=== PATIENT | female | born 1930 | race Caucasian/White ===

== ENCOUNTER 2017-01-23 14:30 | Outpatient (RCR) | payer MEDICARE ==
--- OUTSIDE RECORDS SUMMARY | 2016-11-06 13:00 | XMS REPORT | Continuity of Care Document ---
Author Author [facility] Organization [facility] Address Unknown Phone Unavailable Care Team Providers Care Assistant Therapy Aide Name Role Phone DALIA DELGADO MD PCP Insurance Providers Payer Name Policy Number Subscriber Name Relationship [employer] [id number] Peg Lozoya 18 Self / Same As Patient [employer] [place] [employer] [id number] Peg Lozoya 18 Self / Same As Patient [facility] [id number] Peg Lozoya Self / Same As Patient Advance Directives Directive Response Recorded Date/Time Advance Directives No 07/17/16 11:39pm Health Care Power of Gas Leak Inspector Helper No 07/17/16 11:39pm Organ Donor No 07/17/16 11:39pm Resuscitation Status Full Code 07/17/16 11:39pm Problems Active Problems Medical Problem Onset Date Status Unstable angina Unknown Acute Medications Current Home Medications Medication Dose Units Route Directions Days/Qty Instructions Start Date Memantine 10 Mg 10 Mg Oral Twice A Day 12/30/14 Rivastigmine Tartrate 1 Each 1 Patch Transderm Daily@1200 12/30/14 Ezetimibe 10 Mg 10 Mg Oral Daily@1800 12/30/14 Acetaminophen 500 Mg 500 Mg Oral 5 Times Daily as needed for Pain Aspirin 81 Mg 81 Mg Oral Daily@1800 12/30/14 Levothyroxine Sodium 50 Mcg 50 Mcg Oral Daily 09/27/16 Prednisone 5 Mg 5 Mg Oral Daily 07/18/16 Meloxicam 15 Mg 15 Mg Oral Daily 07/18/16 Paroxetine Hcl 10 Mg 10 Mg Oral Daily 07/18/16 Fluticasone Propionate 9.9 Ml 1 [place] Nasal Twice A Day 07/18/16 Cyanocobalamin (Vitamin B-12) 1,000 Mcg/1 Ml 1,000 Mcg Oral Daily@1200 07/18/16 Pantoprazole Sodium 40 Mg 40 Mg Oral Daily@179907/18/16 Cranberry 500 Mg 500 Mg Oral Daily@179907/18/16 Alprazolam 0.25 Mg 0.25 Mg Oral Daily@179907/18/16 Nitrofurantoin Macrocrystal 100 Mg 100 Mg Oral Daily@179907/18/16 Metoprolol Tartrate 25 Mg 25 Mg Oral Twice A Day 60 07/18/16 Amlodipine Besylate 10 Mg 10 Mg Oral Daily 07/18/16 Lisinopril 20 Mg 10 Mg Oral Daily 07/18/16 Past Home Medications Medication Directions Ordered Status Levothyroxine Sodium 75 Mcg Tablet, 75 Mcg Oral Daily 12/30/14 Discontinued Carvedilol (Coreg) 6.25 Mg Tablet, 12.5 Mg Oral Twice A Day 12/30/14 Discontinued Citalopram Hydrobromide 20 Mg Tablet, 20 Mg Oral Daily 12/30/14 Discontinued Celecoxib 400 Mg Capsule, 400 Mg Oral Daily 12/30/14 Discontinued Omeprazole 20 Mg Tablet.dr, 40 Mg Oral Bedtime 12/30/14 Discontinued Prednisone 10 Mg Tablet, 10 Mg Oral Daily@1200 12/30/14 Discontinued Solifenacin 5 Mg Tablet, 5 Mg Oral Bedtime 12/30/14 Discontinued Multivitamin 1 Each Tablet, 1 Each Oral Daily 12/30/14 Discontinued Om-3/Dha/Epa/Fish Oil/Vit D3 1 Each Capsule, 1 Each Oral Bedtime 12/30/14 Discontinued Vit A,C & E/Lutein/Minerals 1 Each Tablet, 1 Each Oral Bedtime 12/30/14 Discontinued Phenazopyridine Hcl 200 Mg Tablet, 1 Each Oral Three Times A Day And Prn Discontinued [Bactrim Plain] , 1 Tab Oral Twice A Day 01/06/15 Discontinued Carvedilol 12.5 Mg Tablet, 12.5 Mg Oral Twice A Day 07/18/16 Discontinued Nitrofurantoin Macrocrystal 50 Mg Capsule, 50 Mg Oral Daily@1800 07/18/16 Discontinued Metoprolol Succinate 50 Mg Tab.er.24h, 50 Mg Oral Daily 07/18/16 Discontinued Social History Social History Problem Response Recorded Date/Time Alcohol Use Denies Use 02/24/2016 11:58am Recreational Drug Use No 02/24/2016 11:58am Recent Foreign Travel No 07/17/2016 11:46pm Recent Infectious Disease Exposure No 07/17/2016 11:46pm Smoking Status Unknown if Ever Smoked 07/17/2016 11:43pm Recent Hopitalizations No 07/17/2016 11:40pm Query Response Start Date Stop Date Smoking Status Unknown if Ever Smoked Hospital Discharge Instructions No hospital discharge instructions. Plan of Care Discharge Date 07/18/16 11:00am Instructions/Education Provided 2 Gram Sodium Diet (DC) Prescriptions See Medication Section Functional Status Query Response Date Recorded Patient Orientation Person Place July 18, 2016 11:12am Comprehension Ability Understands Concepts July 18, 2016 8:00am Allergies, Adverse Reactions, Alerts Allergen Type Severity Reaction Status Last Updated Iodine and Iodide Containing Produc Allergy Mild RASH Active 01/06/15 Penicillins ([id number]) Allergy Unknown RASH Active 12/30/14 Immunizations Name Given Type FLU TRIvalent 5 years - Adult 07/18/16 Administered Vital Signs Acute Vital Signs Vital Response Date/Time Temperature (Fahrenheit) 98.8 degrees F (97.6 - 99.5) 07/18/2016 9:44am Temperature (Calculated Celsius) 37.46694 degrees C (36.4 - 37.5) 07/18/2016 8:00am Temperature Source Tympanic 07/18/2016 9:44am Pulse Rate (adult) 85 bpm (60 - 90) 07/18/2016 9:44am Respiratory Rate 16 bpm (12 - 24) 07/18/2016 9:44am O2 Sat by Pulse Oximetry 99 % (88 - 100) 07/18/2016 10:04am Blood Pressure 155/60 mm Hg 07/18/2016 9:44am Blood Pressure Mean 91 mm Hg 07/18/2016 8:00am Pain Numeric Pain Scale 0-No Pain 07/18/2016 9:44am Height (Feet) 5 feet 07/17/2016 11:46pm Height (Inches) 4.00 inches 07/17/2016 11:46pm Height (Calculated Centimeters) 162.125029 cm 07/17/2016 11:46pm Weight (Pounds) 188 pounds 07/18/2016 6:00am Weight (Ounces) 3.0 oz 07/18/2016 6:00am Weight (Calculated Grams) 10683.415 gm 07/18/2016 6:00am Weight (Calculated Kilograms) 85.690503 kilograms 07/18/2016 6:00am Calculated BMI 32.3 07/17/2016 11:46pm Capillary Refill Capillary Refill Less Than 3 Seconds 07/18/2016 8:00am Results Pending Laboratory Results Test Name Collection Date/Time Procedures Procedure Status Date Provider(s) Tracing only of electrocardiogram Completed 07/17/16 CURTIS GREER MD Encounters Encounter Location Arrival/Admit Date Discharge/Depart Date Attending Provider Departed [facility] 07/17/16 5:47pm 11:00am BRENDEN CARTER MD Registered Clinic [facility] 06/21/16 11:48am ARIK CEBALLOS PA-C Recent Diagnosis Unstable angina
[~2017-01-23 14:30] MED LIST: ACET-1697 PO; ALPR0.254 PO; AMLO10TA2 PO; ASPI-587 PO; CARV12.53 PO; CARV6.252 PO; CELE400C PO; CITA20TA12 PO; CRAN500C3 PO; CYAN100081 PO; EZET10TA23 PO; FLUT9.9S NS; LEVO50TA6 PO; LEVO75TA57 PO; LISI-552 PO; MELO15TA14 PO; MEMA10TA PO; METO-272 PO; METO-333 PO; MULT-974 PO; NITR100C PO; NITR50CA4 PO; OM-31CAP9 PO; OMEP20TA2 PO; PANT40TA3 PO; PARO10TA3 PO; PHEN200T27 PO; PRED10TA PO; PRED5TAB PO; RIVA1PAT4 TD; SOLI5TAB4 PO; SULFAMETHOXAZOLE PO; TRIMETHOPRIM PO; VIT1TABL26 PO
== END 2017-02-04 | disposition home or self-care (01) ==
LOC: PULM 14:30
PROVIDERS: ATTEND Internal Medicine Critical Care Medicine
DX: R06.02 Shortness of breath (principal); F03.90 Unspecified dementia, unspecified severity, without behavioral disturbance, psychotic disturbance, mood disturbance, and anxiety; R53.83 Other fatigue; F41.9 Anxiety disorder, unspecified
CPT/HCPCS: 99211

== ENCOUNTER 2017-03-27 14:30 | Outpatient (RCR) | payer MEDICARE | END 2017-05-09 | disposition home or self-care (01) | LOC: PULM 14:30 | PROVIDERS: ATTEND Internal Medicine Critical Care Medicine | DX: R06.02 Shortness of breath (principal); F03.90 Unspecified dementia, unspecified severity, without behavioral disturbance, psychotic disturbance, mood disturbance, and anxiety; R53.83 Other fatigue; F41.9 Anxiety disorder, unspecified ==

== ENCOUNTER 2017-12-06 12:26 | Inpatient (IN) | payer MEDICARE ==
[2017-12-06] VITALS (9 sets, daily range): BP systolic 135–151; BP diastolic 63–78
[~2017-12-06] VITALS: Ht 162.6 cm; Wt 86.8 kg
[~2017-12-06 12:26] MED LIST changes: -METO-272 PO; +METO-370 PO
[2017-12-06] MEDS ORDERED: HEParin DRIP 25000 UNIT/500ML 500 ML IV SCH (14:24)
[2017-12-06] MEDS ORDERED: HEParin 1000 UNIT/ML (10ML VIAL) FOR BOLUS IV SCH (14:30)
[2017-12-06 15:07] LABS: BILIRUBIN,URINE NEGATIVE (NEGATIVE); CLARITY,URINE SLIGHTLY CLOUDY; COLOR,URINE YELLOW; GLUCOSE, URINE (UA) NEGATIVE (NEGATIVE); KETONES,URINE NEGATIVE (NEGATIVE); LEUKOCYTE ESTERASE ,URINE 3+ (NEGATIVE); NITRITE,URINE NEGATIVE (NEGATIVE); PH,URINE 8 (5-9); PROTEIN,URINE NEGATIVE (NEGATIVE); UROBILINOGEN,URINE NORMAL (NORMAL)
[2017-12-06 15:21] LABS: BACTERIA,URINE FEW /HPF
[2017-12-06 15:22] LABS: AMORPHOUS SEDIMENT,UR MOD AMOR PHOSPHATE /LPF
[2017-12-06] MEDS ORDERED: SIME125C PO (15:33)
[2017-12-06] MEDS ORDERED: MEMA1CAP3 PO (15:33)
[2017-12-06] MEDS ORDERED: MIRA25TA PO (15:33)
[2017-12-06] MEDS ORDERED: AZEL23SP NS (15:33)
[2017-12-06] MEDS ORDERED: ASPI-983 PO (15:33)
[2017-12-06] MEDS ORDERED: LISI-552 PO (15:33)
[2017-12-06] MEDS ORDERED: CLON1PAT33 TD (15:33)
[2017-12-06] MEDS ORDERED: LEVO88TA54 PO (15:33)
[2017-12-06] MEDS ORDERED: RISP0.253 PO (15:33)
[2017-12-06] MEDS ORDERED: ACET-168 PO (15:33)
[2017-12-06] MEDS ORDERED: IBUP-30 PO (15:33)
[2017-12-06] MEDS ORDERED: EZET10TA27 PO (15:33)
[2017-12-06] MEDS ORDERED: NITR-68 PO (15:33)
[2017-12-06] MEDS ORDERED: CHOL20003 PO (15:36)
[2017-12-06 15:56] LABS: BASOPHILS % (AUTO) 0 % (0-10); EOSINOPHILS % (AUTO) 0 % (0-10); HEMATOCRIT 43 % (35-52); LYMPHOCYTES # (AUTO) 1.3 X 10^3 (1.0-4.0); LYMPHOCYTES % (AUTO) 9 % (12-44); MEAN CORPUSCULAR HEMOGLOBIN 32 PG (25-34); MEAN CORPUSCULAR HGB CONC 32 G/DL (32-36); MEAN CORPUSCULAR VOLUME 99 FL (80-99); MEAN PLATELET VOLUME 11.5 FL (7.4-10.4); MONOCYTES # (AUTO) 0.7 X 10^3 (0.0-1.0); MONOCYTES % (AUTO) 5 % (0-12); NEUTROPHILS # (AUTO) 12.3 X 10^3 (1.8-7.8); NEUTROPHILS % (AUTO) 86 % (42-75); PLATELET COUNT 195 10^3/uL (130-400); RED BLOOD COUNT 4.35 10^6/uL (4.35-5.85); RED CELL DISTRIBUTION WIDTH 12.3 % (10.0-14.5); WHITE BLOOD COUNT 14.4 10^3/uL (4.3-11.0)
[2017-12-06 16:12] LABS: INR 1.1 (0.8-1.4); PROTHROMBIN TIME PATIENT 14.1 SEC (12.2-14.7)
[2017-12-06 16:15] LABS: BUN/CREATININE RATIO 13; CALCIUM 9.8 MG/DL (8.5-10.1); CARBON DIOXIDE 18 MMOL/L (21-32); CHLORIDE 110 MMOL/L (98-107); CREATININE SERUM 0.82 MG/DL (0.60-1.30); GFR ESTIMATED > 60; GLUCOSE 123 MG/DL (70-105); SODIUM 141 MMOL/L (135-145)
[2017-12-06 16:17] LABS: BAND NEUTROPHILS 1 %; BASOPHILS % (MANUAL) 0 %; EOSINOPHILS % (MANUAL) 0 %; LYMPHOCYTES % (MANUAL) 11 %; MONOCYTES % (MANUAL) 2 %; NEUTROPHILS % (MANUAL) 86 %; PLATELET CLUMPS OCCASIONAL; RBC MORPH NORMAL
[2017-12-06] MEDS ORDERED: INFLUENZA TRIvalent 2017-2018 0.5 ML/45 MCG SYR IM ONE (16:45)
[2017-12-06] MEDS ORDERED: ACETAMINOPHEN 500 MG TAB (TYLENOL) PO PRN (16:45)
[2017-12-06] MEDS ORDERED: IBUPROFEN TABLET 200 MG TAB PO PRN (17:15)
[2017-12-06] MEDS ORDERED: VANCOMYCIN INJECTION 1,000 MG in NS (IVPB) 250 ML IV SCH (17:15)
--- NOTE | 2017-12-06 17:20 | Consultation-Cardiology ---
HPI-Cardiology Cardiology Consultation Date of Consultation 12/06/17 Date of Admission Time Seen by Provider: 17:13 Indication: Change in mental status HPI 87 years old lady with history of coronary artery disease, small vessel disease by cardiac catheterization done in 2016. Has been having recurrent UTI, multiple hospital visits. Was in the hospital for few days early in November 2017, discharge home on IV antibiotic, continue to deteriorate until 3 days ago , became lethargic and confused more than her baseline. Was admitted to [facility] with UTI again and received antibiotic, patient was getting ready for transfer to [facility] for tomorrow but this morning she became unresponsive, lethargic, had some EKG changes. There was a concern about having heart attack. I was contacted and accepted the patient to be transferred. Upon my evaluation she was more awake, responsive to verbal stimuli but disoriented. Lethargic. Denied any chest pain or shortness of breath. Home Medications & Allergies Allergies: Coded Allergies: Iodine and Iodide Containing Produc (Unverified Allergy, Mild, RASH, ) Penicillins (Unverified Allergy, Unknown, RASH, 12/30/14) Home Medication List Reviewed: Yes OAN-Wuzltk-Ifetig Hx Patient Social History Marital Status: Alcohol Use: Denies Use Recreational Drug Use: No Smoking Status: Never a Smoker Recent Foreign Travel: No Recent Infectious Disease Expo: No Recent Hopitalizations: No Physical Abuse Screen: No Sexual Abuse: No Immunizations Up To Date Date of Pneumonia Vaccine: Jul 22, 2014 Date of Influenza Vaccine: Jul 22, 2014 Past Medical History Thus medical history as discussed below Family Medical History Significant Family History: No Pertinent Family Hx Family Medical Hx Noncontributory to her current condition Constitutional: malaise, weakness EENTM: see HPI, no symptoms reported Respiratory: see HPI, No cough, No dyspnea on exertion, No hemoptysis, No orthopnea, No phlegm, No short of breath, No stridor, No wheezing, No other Cardiovascular: see HPI, No chest pain, No edema, No Hx of Intervention, No palpitations, No syncope, No vascular heart diseas, No other Gastrointestinal: no symptoms reported Genitourinary: see HPI, incontinence Musculoskeletal: muscle stiffness, muscle cramps, muscle weakness Psychiatric/Neurological: Depressed, Other (Infusion) Reviewed Test Results Reviewed Test Results Laboratory Tests Test 12/06/17 14:55 2/15/18 15:20 12/06/17 15:45 Range/Units Urine Color YELLOW Urine Clarity SLIGHTLY CLOUDY Urine pH 8 5-9 Urine Specific [place] 1.015 L 1.016-1.022 Urine Protein NEGATIVE NEGATIVE Urine Glucose (UA) NEGATIVE NEGATIVE Urine Ketones NEGATIVE NEGATIVE Urine Nitrite NEGATIVE NEGATIVE Urine Bilirubin NEGATIVE NEGATIVE Urine Urobilinogen NORMAL NORMAL MG/DL Urine Leukocyte Esterase 3+ H NEGATIVE Urine RBC (Auto) 3+ H NEGATIVE Urine RBC 10-25 H /HPF Urine WBC 10-25 H /HPF Urine Crystals PRESENT H /LPF Urine Amorphous Sediment MOD SUSAN PHOSPHATE H /LPF Urine Bacteria FEW H /HPF Urine Casts NONE /LPF Urine Mucus NEGATIVE /LPF Urine Culture Indicated YES Sodium Level 141 135-145 MMOL/L Potassium Level 4.0 3.6-5.0 MMOL/L Chloride Level 110 H 98-107 MMOL/L Carbon Dioxide Level 18 L 21-32 MMOL/L Anion Gap 13 5-14 MMOL/L Blood Urea Nitrogen 11 7-18 MG/DL Creatinine 0.82 0.60-1.30 MG/DL Estimat Glomerular Filtration Rate > 60 BUN/Creatinine Ratio 13 Glucose Level 123 H 70-105 MG/DL Calcium Level 9.8 8.5-10.1 MG/DL Troponin I < 0.30 <0.30 NG/ML White Blood Count 14.4 H 4.3-11.0 10^3/uL Red Blood Count 4.35 4.35-5.85 10^6/uL Hemoglobin 14.0 11.5-16.0 G/DL Hematocrit 43 35-52 % Mean Corpuscular Volume 99 80-99 FL Mean Corpuscular Hemoglobin 32 25-34 PG Mean Corpuscular Hemoglobin Concent 32 32-36 G/DL Red Cell Distribution Width 12.3 10.0-14.5 % Platelet Count 195 130-400 10^3/uL Mean Platelet Volume 11.5 H 7.4-10.4 FL Neutrophils (%) (Auto) 86 H 42-75 % Lymphocytes (%) (Auto) 9 L 12-44 % Monocytes (%) (Auto) 5 0-12 % Eosinophils (%) (Auto) 0 0-10 % Basophils (%) (Auto) 0 0-10 % Neutrophils # (Auto) 12.3 H 1.8-7.8 X 10^3 Lymphocytes # (Auto) 1.3 1.0-4.0 X 10^3 Monocytes # (Auto) 0.7 0.0-1.0 X 10^3 Eosinophils # (Auto) 0.0 0.0-0.3 10^3/uL Basophils # (Auto) 0.0 0.0-0.1 10^3/uL Neutrophils % (Manual) 86 % Lymphocytes % (Manual) 11 % Monocytes % (Manual) 2 % Eosinophils % (Manual) 0 % Basophils % (Manual) 0 % Band Neutrophils 1 % Clumped Platelets OCCASIONAL Blood Morphology Comment NORMAL Prothrombin Time 14.1 12.2-14.7 SEC INR Comment 1.1 0.8-1.4 Activated Partial Thromboplast Time 165 *H 24-35 SEC Physical Exam Vital Signs Vital Signs - First Documented 12/06/17 12/06/17 15:50 16:00 Temp 98.1 Pulse 85 Resp 16 B/P (MAP) 137/63 (87) Pulse Ox 97 O2 Delivery Nasal Cannula Capillary Refill : General Appearance: WD/WN, Moderate Distress Eyes: Bilateral Eye Normal Inspection, Bilateral Eye PERRL, Bilateral Eye EOMI HEENT: PERRL/EOMI, TMs Normal, Normal ENT Inspection, Pharynx Normal Neck: Full Range of Motion, Normal Inspection, Non Tender, Supple, Carotid Bruit Respiratory: Chest Non Tender, Lungs Clear, Normal Breath Sounds, No Accessory Muscle Use, No Respiratory Distress Cardiovascular: Regular Rate, Rhythm, No Edema, No Gallop, No JVD, Normal Peripheral Pulses, Systolic Murmur Gastrointestinal: Normal Bowel Sounds, No Organomegaly, No Pulsatile Mass, Non Tender, Soft Back: Normal Inspection, No CVA Tenderness, No Vertebral Tenderness Extremity: Normal Capillary Refill, Normal Inspection, Normal Range of Motion, Non Tender, No Calf Tenderness, No Pedal Edema Neurologic/Psychiatric: Alert, Motor Weakness, Other (Disoriented, lethargic) Skin: Normal Color, Warm/Dry Lymphatic: No Adenopathy A/P-Cardiology Admission Diagnosis Change in mental status Recurrent UTI Coronary artery disease Malignant hypertension Assessment/Plan Change in mental status, lethargy, confusion, recurrent UTI. Currently off antibiotic, workup done by primary care team. Generalized weakness and loss of energy, became unresponsive earlier, currently arousable. I removed NG tube. Patient was able to drink. Abnormal EKG, right bundle branch block, nonspecific T wave abnormality. Appeared to be chronic. Cardiac enzymes were negative. Continue to monitor, stop heparin drip. Continue on aspirin for now. Coronary artery disease, mild per cardiac catheterization done on July 17, 2016, continue to monitor at this time. Echocardiogram done in [facility] showing normal left ventricular size with left ventricular hypertrophy ejection fraction 60-65 percent, continue to monitor Malignant hypertension, resistant to multiple medication, her change in mental status could be due to episode of severe hypotension. Hyperlipidemia, monitor lipids. Restart home medication Generalized body ache, unable to tolerate statin. Dementia, progressive, change in mental status. Currently confused Osteoarthritis, maintained on steroids. Clinical Quality Measures DVT/VTE Risk/Contraindication: Risk Factor Score Per Nursin RFS Level Per Nursing on Admit: 3=High BRENDEN CARTER MD Dec 06, 2017 17:20
[2017-12-06] MEDS ORDERED: NITROFURANTOIN 50 MG (MACRODANTIN) CAP PO SCH (18:00)
[2017-12-06] MEDS ORDERED: NON-FORMULARY MEDICATION 1 EA EA (Mirabegron (Myrbetriq) 25 MG) PO SCH (18:00)
[2017-12-06] MEDS ORDERED: NITROFURANTOIN MACROCRYSTAL 100 MG PO SCH (18:00)
[2017-12-06] MEDS: eZETimibe 10 MG (ZETIA) TABLET PO SCH (18:07)
[2017-12-06] MEDS: ASPIRIN E.C. 81 MG (ECOTRIN) TAB PO SCH (18:07)
[2017-12-06] MEDS: ALPRAZolam 0.25 MG (XANAX) TAB PO SCH (18:08)
[2017-12-06] MEDS ORDERED: VANCOMYCIN 1,750 MG/NS 500 ML IVPB IV SCH ×2 (19:30)
[2017-12-06] MEDS ORDERED: AZELASTINE NS SCH (21:00)
[2017-12-06] MEDS ORDERED: MEROPENEM IV SCH ×2 (21:00)
[2017-12-06] MEDS ORDERED: IBUPROFEN TABLET 200 MG TAB PO SCH (21:00)
[2017-12-06] MEDS ORDERED: NON-FORMULARY MEDICATION 1 EA EA (Simethicone (Gas-X) 125 MG) PO SCH (21:00)
[2017-12-06] MEDS ORDERED: DEXTROSE IV SCH ×2 (21:00)
[2017-12-06] MEDS ORDERED: FLUTICASONE NS SCH (21:00)
[2017-12-06] MEDS: MEROPENEM IV SCH ×2 (21:23)
[2017-12-06] MEDS: DEXTROSE IV SCH ×2 (21:23)
[2017-12-06] MEDS: SIMETHICONE 80 MG (MYLICON) CHEW PO SCH (21:24)
[2017-12-06] MEDS: FLUTICASONE NASAL SPRAY (FLONASE) 16 GM BTL NS SCH (21:24)
[2017-12-06] MEDS: PARoxetine 10 MG (PAXIL) TAB PO SCH (21:24)
[2017-12-06] MEDS: lisINopril 20 MG (PRINIVIL) TABLET PO SCH (21:24)
[2017-12-06] MEDS ORDERED: MEROPENEM 2,000 MG in NS (IVPB) 100 ML IV SCH (22:00)
[2017-12-07] VITALS (18 sets, daily range): BP systolic 102–170; BP diastolic 46–71
[2017-12-07 04:22] LABS: MEAN PLATELET VOLUME 11.3 FL (7.4-10.4); RED BLOOD COUNT 3.77 10^6/uL (4.35-5.85); RED CELL DISTRIBUTION WIDTH 12.3 % (10.0-14.5); WHITE BLOOD COUNT 9.8 10^3/uL (4.3-11.0)
[2017-12-07 04:38] LABS: PROTHROMBIN TIME PATIENT 13.5 SEC (12.2-14.7)
[2017-12-07 04:46] LABS: ALANINE AMINOTRANSFERASE 16 U/L (0-55); ALBUMIN 3.2 GM/DL (3.2-4.5); ALKALINE PHOSPHATASE 62 U/L (40-136); BILIRUBIN,TOTAL 0.6 MG/DL (0.1-1.0); BUN/CREATININE RATIO 15; CALCIUM 9.6 MG/DL (8.5-10.1); CARBON DIOXIDE 22 MMOL/L (21-32); CHLORIDE 111 MMOL/L (98-107); CHOLESTEROL 147 MG/DL (< 200); CREATININE SERUM 0.91 MG/DL (0.60-1.30); GFR ESTIMATED 59; GLUCOSE 93 MG/DL (70-105); HDL CHOLESTEROL 41 MG/DL (40-60); POTASSIUM 3.7 MMOL/L (3.6-5.0); SODIUM 140 MMOL/L (135-145); TOTAL PROTEIN 5.3 GM/DL (6.4-8.2); TRIGLYCERIDES 107 MG/DL (<150); VLDL CHOLESTEROL 21 MG/DL (5-40)
[2017-12-07] MEDS ORDERED: KCL 20 MEQ TAB (K-DUR) PO SCH (06:00)
[2017-12-07] MEDS ORDERED: POTASSIUM CL 10MEQ/50ML IVPB 50 ML IV SCH (06:00)
[2017-12-07] MEDS ORDERED: MAGNESIUM 1 GM/100 ML IVPB 100 ML IV SCH (06:00)
[2017-12-07] MEDS: LEVOTHYROXINE 88 MCG (LEVOTHORID) TAB PO SCH (06:03)
[2017-12-07] MEDS: predniSONE 5 MG TAB PO SCH (06:03)
[2017-12-07] MEDS ORDERED: NON-FORMULARY MEDICATION 1 EA EA (Memantine HCl/Donepezil HCl (Namzaric 28 mg-10 mg Capsul PO SCH (09:00)
[2017-12-07] MEDS ORDERED: NON-FORMULARY MEDICATION 1 EA EA (Cholecalciferol (Vitamin D3) (Vitamin D3) 2,000 UNIT) PO SCH (09:00)
[2017-12-07] MEDS: MEROPENEM IV SCH ×2 (09:08)
[2017-12-07] MEDS: DEXTROSE IV SCH ×2 (09:08)
[2017-12-07] MEDS: DONEPEZIL 10 MG (ARICEPT) TAB PO SCH (09:09)
[2017-12-07] MEDS: SIMETHICONE 80 MG (MYLICON) CHEW PO SCH ×2 (09:09→20:23)
[2017-12-07] MEDS: MEMANTINE 10 MG (NAMENDA) TABLET PO SCH ×2 (09:10→20:23)
[2017-12-07] MEDS: PARoxetine 10 MG (PAXIL) TAB PO SCH ×2 (09:11→20:23)
[2017-12-07] MEDS: risperiDONE 0.25 MG (RisperDAL) TAB PO SCH (09:11)
[2017-12-07] MEDS: VITAMIN D3 1,000 UNITS (CHOLECALCIFEROL) TABLET PO SCH (09:13)
[2017-12-07] MEDS: lisINopril 20 MG (PRINIVIL) TABLET PO SCH ×2 (09:13→20:23)
[2017-12-07] MEDS: FLUTICASONE NASAL SPRAY (FLONASE) 16 GM BTL NS SCH ×2 (09:14→20:23)
--- NOTE | 2017-12-07 09:32 | Cardiology Progress Note ---
Subjective Date Seen by Provider: Dec 07, 2017 Time Seen by Provider: 09:29 Subjective/Events-last exam Patient is laying down in bed, complaining of feeling cold. Still lethargic. Responding appropriately. Confused Review of Systems General: Chills, No Night Sweats, Fatigue, Malaise, No Appetite, No Other HEENT: No Head Aches, No Visual Changes, No Eye Pain, No Ear Pain, No Dysphasia , No Sinus Congestion, No Post Nasal Drip, No Sore Throat, No Other Pulmonary: No Dyspnea, No Cough, No Pleuritic Chest Pain, No Other Cardiovascular: No: Chest Pain, Palpitations, Orthopnea, Paroxysmal Noc. Dyspnea, Edema, Lt Headedness, Other Objective-Cardiology Exam Last Set of Vital Signs Vital Signs 12/07/17 12/07/17 12/07/17 06:00 07:00 08:00 Temp 96.4 Pulse 67 Resp 21 B/P (MAP) 124/50 (74) Pulse Ox 100 O2 Delivery Nasal Cannula O2 Flow Rate 2.00 Capillary Refill : I&O Intake and Output 12/06/17 23:59 Intake Total 500 ml Output Total 750 ml Balance -250 ml Intake Oral 500 ml IV Total 0 ml Output Urine Total 750 ml Daily Weight Change No General: Alert, Cooperative, Mild Distress HEENT: Atraumatic, PERRLA Neck: Supple, No JVD, No Thyromegaly Lungs: Clear to Auscultation, Normal Air Movement Heart: Regular Rate, Normal S1, Normal S2, Other (Systolic murmur) Abdomen: Normal Bowel Sounds, Soft, No Tenderness, No Hepatosplenomegaly, No Masses Extremities: No Clubbing, No Cyanosis, No Edema, Normal Pulses, No Tenderness/ Swelling Skin: No Rashes, No Breakdown, No Significant Lesion Neuro: Normal Tone, Sensation Intact Psych/Mental Status: Mood NL, Other (Confused) Results Lab Laboratory Tests 12/06/17 15:20 12/06/17 15:45 12/07/17 03:45 Procedures Procedures Laboratory Tests Test 12/06/17 14:55 12/06/17 15:20 12/06/17 15:45 Range/Units Urine Color YELLOW Urine Clarity SLIGHTLY CLOUDY Urine pH 8 5-9 Urine Specific [place] 1.015 L 1.016-1.022 Urine Protein NEGATIVE NEGATIVE Urine Glucose (UA) NEGATIVE NEGATIVE Urine Ketones NEGATIVE NEGATIVE Urine Nitrite NEGATIVE NEGATIVE Urine Bilirubin NEGATIVE NEGATIVE Urine Urobilinogen NORMAL NORMAL MG/DL Urine Leukocyte Esterase 3+ H NEGATIVE Urine RBC (Auto) 3+ H NEGATIVE Urine RBC 10-25 H /HPF Urine WBC 10-25 H /HPF Urine Crystals PRESENT H /LPF Urine Amorphous Sediment MOD SUSAN PHOSPHATE H /LPF Urine Bacteria FEW H /HPF Urine Casts NONE /LPF Urine Mucus NEGATIVE /LPF Urine Culture Indicated YES Sodium Level 141 135-145 MMOL/L Potassium Level 4.0 3.6-5.0 MMOL/L Chloride Level 110 H 98-107 MMOL/L Carbon Dioxide Level 18 L 21-32 MMOL/L Anion Gap 13 5-14 MMOL/L Blood Urea Nitrogen 11 7-18 MG/DL Creatinine 0.82 0.60-1.30 MG/DL Estimat Glomerular Filtration Rate > 60 BUN/Creatinine Ratio 13 Glucose Level 123 H 70-105 MG/DL Calcium Level 9.8 8.5-10.1 MG/DL Troponin I < 0.30 <0.30 NG/ML White Blood Count 14.4 H 4.3-11.0 10^3/uL Red Blood Count 4.35 4.35-5.85 10^6/uL Hemoglobin 14.0 11.5-16.0 G/DL Hematocrit 43 35-52 % Mean Corpuscular Volume 99 80-99 FL Mean Corpuscular Hemoglobin 32 25-34 PG Mean Corpuscular Hemoglobin Concent 32 32-36 G/DL Red Cell Distribution Width 12.3 10.0-14.5 % Platelet Count 195 130-400 10^3/uL Mean Platelet Volume 11.5 H 7.4-10.4 FL Neutrophils (%) (Auto) 86 H 42-75 % Lymphocytes (%) (Auto) 9 L 12-44 % Monocytes (%) (Auto) 5 0-12 % Eosinophils (%) (Auto) 0 0-10 % Basophils (%) (Auto) 0 0-10 % Neutrophils # (Auto) 12.3 H 1.8-7.8 X 10^3 Lymphocytes # (Auto) 1.3 1.0-4.0 X 10^3 Monocytes # (Auto) 0.7 0.0-1.0 X 10^3 Eosinophils # (Auto) 0.0 0.0-0.3 10^3/uL Basophils # (Auto) 0.0 0.0-0.1 10^3/uL Neutrophils % (Manual) 86 % Lymphocytes % (Manual) 11 % Monocytes % (Manual) 2 % Eosinophils % (Manual) 0 % Basophils % (Manual) 0 % Band Neutrophils 1 % Clumped Platelets OCCASIONAL Blood Morphology Comment NORMAL Prothrombin Time 14.1 12.2-14.7 SEC INR Comment 1.1 0.8-1.4 Activated Partial Thromboplast Time 165 *H 24-35 SEC A/P-Cardiology Admission Diagnosis Change in mental status Recurrent UTI Coronary artery disease Malignant hypertension Assessment/Plan Change in mental status, lethargy, confusion, recurrent UTI, started on meropenem, managed by primary care team. Continue to monitor. Generalized weakness and loss of energy, more responsive to verbal stimuli. Still confused. Abnormal EKG, right bundle branch block, nonspecific T wave abnormality. Appeared to be chronic. Cardiac enzymes were negative, continue to monitor. Coronary artery disease, mild per cardiac catheterization done on July 17, 2016, continue to monitor at this time. Echocardiogram done in [facility] showing normal left ventricular size with left ventricular hypertrophy ejection fraction 60-65 percent, continue to monitor Malignant hypertension, resistant to multiple medication, her change in mental status could be due to episode of severe hypotension, blood pressure is better controlled at this time. I will continue monitoring Hyperlipidemia, monitor lipids. Generalized body ache, unable to tolerate statin. Dementia, progressive, change in mental status. Currently confused Osteoarthritis, maintained on steroids. Clinical Quality Measures DVT/VTE Risk/Contraindication: Risk Factor Score Per Nursin RFS Level Per Nursing on Admit: 3=High BRENDEN CARTER MD Dec 07, 2017 09:32
--- NOTE | 2017-12-07 11:04 | History & Physical-Hospitalist ---
HPI History of Present Illness: HPI/Chief Complaint CC: AMS w/syncope HPI: This is an 87-year-old white female DO NOT RESUSCITATE alf patient of Dr. Wright'arcelia who was accepted in transfer from Dr. Tejeda due to syncopal episode with altered mental status and EKG changes consistent with acute ischemia and possible non-ST elevation AR. Upon further assessment she was found to have recurrent UTI history of ESBL so she was placed on empiric antibiotics of vancomycin and meropenem broad-spectrum after urine culture obtained and Dr. Tejeda evaluated in EKG from 2005 and found no changes to those ST segments so she is currently stable but sleeping soundly and it does not appear she is very active and given the rest of her comorbidities her prognosis appears to be poor but will transfer back down to fourth floor maintain IV antibiotics until urine culture is completed and we have restarted most of her home medications. Source: RN/ Exam Limitations: clinical condition Date Seen 12/07/17 Time Seen by Provider: 10:00 Attending Physician Mary Carranza DO PCP Self,Jorgito FORD Referring Physician Date of Admission Dec 06, 2017 at 13:30 Home Medications & Allergies Home Medications Reviewed patient Home Medication Reconciliation Form Allergies Allergies Coded Allergies Iodine and Iodide Containing Produc (Unverified Allergy, Mild, RASH, 01/06/15) Penicillins (Unverified Allergy, Unknown, RASH, 12/30/14) Past Pntmwvs-Goiugz-Osurso Hx Patient Social History Marrital Status: Alcohol Use: Denies Use Recreational Drug Use: No Smoking Status: Never a Smoker Physical Abuse Screen: No Sexual Abuse: No Recent Foreign Travel: No Contact w/other who traveled: No Recent Hopitalizations: No Recent Infectious Disease Expo: No Immunizations Up To Date Date of Pneumonia Vaccine: Jul 22, 2014 Date of Influenza Vaccine: Jul 22, 2014 Seasonal Allergies Seasonal Allergies: No Surgeries Yes (LEFT TKR, RIGHT MASTECTOMY, BLADDER BX) Breast Respiratory No Currently Using CPAP: No Currently Using BIPAP: No Cardiovascular Yes (CHRONIC CHEST PAIN) Hypertension Neurological Yes Dementia Genitourinary Yes Bladder Infection, Renal Failure Gastrointestinal No Musculoskeletal Yes Chronic Back Pain Endocrine History of Endocrine Disorders: Yes Endocrine Disorders: Hypothyroidsim Cancer Yes (RIGHT SIDED MASTECTOMY) Breast Psychosocial History of Psychiatric Problem: No Integumentary History of Skin or Integumenta: No Blood Transfusions History of Blood Disorders: No Adverse Reaction to a Blood Tr: No Family Medical History Significant Family History: No Pertinent Family Hx Review of Systems ROS-Unable to Obtain: dementia Constitutional: see HPI Physical Exam Physical Exam Vital Signs Vital Signs - First Documented 12/06/17 14:00 Temp 98.8 Pulse 82 Resp 20 B/P (MAP) 151/72 (98) Pulse Ox 96 O2 Delivery Room Air Capillary Refill : General Appearance: No Apparent Distress, WD/WN, Chronically ill, Obese Eyes: Bilateral Eye Normal Inspection, Bilateral Eye PERRL Neck: Full Range of Motion, Normal Inspection, Non Tender, Supple Respiratory: Chest Non Tender, Lungs Clear, No Accessory Muscle Use, No Respiratory Distress, Decreased Breath Sounds Cardiovascular: Regular Rate, Rhythm, No Edema, No Gallop, No JVD, No Murmur, Normal Peripheral Pulses Gastrointestinal: Normal Bowel Sounds, No Organomegaly, No Pulsatile Mass, Non Tender, Soft Back: Normal Inspection, No CVA Tenderness, No Vertebral Tenderness Extremity: Normal Capillary Refill, Normal Inspection, Normal Range of Motion, Non Tender, No Calf Tenderness, No Pedal Edema Neurologic/Psychiatric: Alert, No Motor/Sensory Deficits, Depressed Affect, Disoriented x3 Skin: Normal Color, Warm/Dry Lymphatic: No Adenopathy Results Results/Procedures Lab Laboratory Tests 12/06/17 15:20 12/06/17 15:45 12/07/17 03:45 Assessment/Plan Admission Diagnosis Assessment: Altered mental status with syncopal episode with changes to EKG prompting transfer to higher level of care for presumed non-ST elevation AR now disproved by Dr. Tejeda after no change noted on EKG compared to 2005 UTI likely ESBL or resistant organism Dementia with chronic debility resides in a alf with poor long-term prognosis DO NOT RESUSCITATE Hypertension Leukocytosis now resolved Assessment and Plan Plan: Maintain IV antibiotics until cultures are completed Supportive care Transfer to fourth floor DO NOT RESUSCITATE Home medication Long-term prognosis very poor Clinical Quality Measures DVT/VTE Risk/Contraindication: Risk Factor Score Per Nursin RFS Level Per Nursing on Admit: 3=High MARY CARRANZA DO Dec 07, 2017 11:04
[2017-12-07] MEDS ORDERED: NON-FORMULARY MEDICATION 1 EA EA (Cyanocobalamin (Vitamin B-12) (Vitamin B-12) 500 MCG) PO SCH (12:00)
[2017-12-07] MEDS: CYANOCOBALAMIN 500 MCG TAB (VITAMIN B-12) PO SCH (12:07)
--- NOTE | 2017-12-07 13:02 | Occupational Therapy Eval ---
OT Evaluation-General/PLF Medical Diagnosis Admission Date Dec 06, 2017 at 13:30 Medical Diagnosis: Sepis, NSTEMI Onset Date: Dec 06, 2017 Therapy Diagnosis Therapy Diagnosis: impaired self care skills Height/Weight Height (Feet): 5 Height (Inches): 4.00 Weight (Pounds): 188 Weight (Ounces): 3.0 Precautions Precautions/Isolations: Fall Prevention, Standard Precautions Safety Interventions: None Medical History Pertinent Medical History: Breast CA S/P Mastectomy, CAD, Dementia, HTN, OA Additional Medical History left TKA, chronic chest pain, renal failure, chronic back pain. Reviewed History: Yes Social History Home: Custodial ADL-Prior Level of Function ADL PLOF Comments Per chart, pt is a senior living resident. Pt is unable to provide information regarding PLOF. OT Current Status Subjective Pt resting in bed, easily awakens to voice. Pt agrees to participate in OT evaluation. Mental Status/Objective Patient Orientation: Confused Attachments: Aguilar Catheter, IV, Oxygen Current Upper Extremity ROM Decreased shoulder ROM. Remainder grossly functional Upper Extremity Coordination fair Upper Extremity Strength decreased bilateral UE ADL-Treatment ADL-Current Pt is lethargic, but able to follow simple commands to participate in UE assessment. Pt washed face with min assist and increased time. Pt states she is uncomfortable. Assisted pt to reposition in bed. Pt resting in bed with needs met after session. Functional [place] Measure 0=Not Assessed/NA 4=Minimal Assistance 1=Total Assistance 5=Supervision or Setup 2=Maximal Assistance 6=Modified [place] 3=Moderate Assistance 7=Complete IndependenceIRFPAI Quality Coding Scale 6 Independent with activity with or without an assistive device 5 Patient requires set up or clean up by helper. Patient completes activity by themselves 4 Supervision or touching assist (CGA). [place] provide cues , steadying assist 3 The helper provides less than half the effort to complete the activity 2 The helper provides more than half the effort to complete the activity 1 Dependent. The helper does all the effort to complete an activity 7 Patient refused to complete or attempt activity 9 The patient did not perform the activity before the current illness or injury 88 Not attempted due to Medical conditions or safety concerns Education OT Patient Education: Rehab process Teaching Recipient: Patient Teaching Methods: Discussion Response to Teaching: Unable to Comprehend OT Short Term Goals Short Term Goals 1=Demonstrate adherence to instructed precautions during ADL tasks. 2=Patient will verbalize/demonstrate understanding of assistive devices/ modifications for ADL. 3=Patient will improve strength/tolerance for activity to enable patient to perform ADL's. OT Group Home Goals Senior Librarian Goals Time Frame: Dec 14, 2017 Eating (FIM): 5 Grooming(FIM): 5 Additional Goals: 2-Verbalize Understanding, 3-ImproveStrength/Yumi 1=Demonstrate adherence to instructed precautions during ADL tasks. 2=Patient will verbalize/demonstrate understanding of assistive devices/ modifications for ADL. 3=Patient will improve strength/tolerance for activity to enable patient to perform ADL's. OT Education/Plan Problem List/Assessment Assessment: Decreased Activ Tolerance, Decreased UE Strength, Dependent Transfers, Impaired Coordination, Impaired Funct Balance, Impaired Self-Care Skills Pt to benefit from short term skilled OT while hospitalized for ADL training and UE strengthening to increase level of function. Discharge Recommendations Plan/Recommendations: Continue POC Treatment Plan/Plan of Care Patient would benefit from OT for education, treatment and training to promote independence in ADL's, mobility, safety and/or upper extremity function for ADL' s. Plan of Care: ADL Retraining, Functional Mobility, UE Funct Exercise/Act Treatment Duration: Dec 14, 2017 Frequency: 5 times per week Estimated Hrs Per Day: .25 hour per day Rehab Potential: Poor Time/GCodes Start Time: 11:18 Stop Time: 11:32 Total Time Billed (hr/min): 14 Billed Treatment Time 1 visit, ROYA(14minutes) THANH DAWN OT Dec 07, 2017 13:02
--- NOTE | 2017-12-07 15:23 | Physical Therapy Progress Note ---
Therapy Progress Note Chart reviewed and evaluation attempted. Patient was just transferred down to the 4th floor and is having a lot of medical procedures performed and is not available for evaluation right now. Will try back. CORRINA CHURCHILL PT Dec 07, 2017 15:23
--- OUTSIDE RECORDS SUMMARY | 2017-12-07 15:37 | XMS REPORT | Continuity of Care Document ---
Author Author [facility] Organization [facility] Address Unknown Phone Unavailable Allergies Active Description Code Type Severity Reaction Onset Reported/Identified Relationship to Patient Clinical Status Yes Penicillins [id number] Drug Allergy Unknown RASH 12/30/2014 Yes Iodine and Iodide Containing Produc [id number] Drug Allergy Mild RASH 01/06 Medications There is no data. 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 02/24/2016 FELIBERTO WALLIS MD Ot I45.10 UNSPECIFIED RIGHT BUNDLE-BRANCH BLOCK 02/24/2016 FELIBERTO WALLIS MD Ot R55 SYNCOPE AND COLLAPSE 02/25/2016 FELIBERTO WALLIS MD Ot I45.10 UNSPECIFIED RIGHT BUNDLE-BRANCH BLOCK 02/25/2016 FELIBERTO WALLIS MD Ot R55 SYNCOPE AND COLLAPSE 03/14/2016 FELIBERTO WALLIS MD Ot I45.10 UNSPECIFIED RIGHT BUNDLE-BRANCH BLOCK 03/14/2016 FELIBERTO WALLIS MD Ot R55 SYNCOPE AND COLLAPSE 06/21/2016 Ot 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 06/21/2016 Ot 788.30 UNSPECIFIED URINARY INCONTINENCE 06/21/2016 Ot V72.84 EXAM PRE- OPERATIVE NOS 06/21/2016 Ot V74.8 SCREEN- BACTERIAL DIS NEC 06/22/2016 ARIK CEBALLOS PA-C Ot I10 ESSENTIAL (PRIMARY) HYPERTENSION 06/22/2016 ARIK CEBALLOS PA-C Ot I20.9 ANGINA PECTORIS, UNSPECIFIED 06/23/2016 ARIK CEBALLOS PA-C Ot I10 ESSENTIAL (PRIMARY) HYPERTENSION 06/23/2016 ARIK CEBALLOS PA-C Ot I20.9 ANGINA PECTORIS, UNSPECIFIED 07/12/2016 ARIK CEBALLOS PA-C Ot I10 ESSENTIAL (PRIMARY) HYPERTENSION 07/12/2016 ARIK CEBALLOS PA-C Ot I20.9 ANGINA PECTORIS, UNSPECIFIED 07/18/2016 BRENDEN CARTER MD Ot E78.5 HYPERLIPIDEMIA, UNSPECIFIED 07/18/2016 BRENDEN CARTER MD Ot I11.0 HYPERTENSIVE HEART DISEASE WITH HEART FA 07/18/2016 BRENDEN CARTER MD Ot 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 [place] ART W 07/18/2016 BRENDEN CARTER MD Ot I50.32 CHRONIC DIASTOLIC (CONGESTIVE) HEART MANJU 07/18/2016 BRENDEN CARTER MD Ot Z79.899 OTHER NURSING HOME (CURRENT) DRUG THERAPY 07/19/2016 ARIK CEBALLOS PA-C Ot I10 ESSENTIAL (PRIMARY) HYPERTENSION 07/19/2016 ARIK CEBALLOS PA-C Ot I20.9 ANGINA PECTORIS, UNSPECIFIED 08/04/2016 BRENDEN CARTER MD Ot E78.5 HYPERLIPIDEMIA, UNSPECIFIED 08/04/2016 BRENDEN CARTER MD Ot I11.0 HYPERTENSIVE HEART DISEASE WITH HEART FA 08/04/2016 BRENDEN CARTER MD Ot 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 [place] ART W 08/04/2016 BRENDEN CARTER MD Ot I50.32 CHRONIC DIASTOLIC (CONGESTIVE) HEART MANJU 08/04/2016 BRENDEN CARTER MD Ot Z79.899 OTHER [facility] (CURRENT) DRUG THERAPY 08/16/2016 Ot 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 08/16/2016 Ot 788.30 UNSPECIFIED URINARY INCONTINENCE 08/16/2016 Ot V72.84 EXAM PRE- OPERATIVE NOS 08/16/2016 Ot V74.8 SCREEN- BACTERIAL DIS NEC 08/16/2016 ARIK CEBALLOS PA-C Ot I10 ESSENTIAL (PRIMARY) HYPERTENSION 08/16/2016 ARIK CEBALLOS PA-C Ot I20.9 ANGINA PECTORIS, UNSPECIFIED 08/17/2016 SIVA CARTAGENA APRN Ot G89.29 OTHER CHRONIC PAIN 08/17/2016 SIVA CARTAGENA APRN Ot J30.2 OTHER SEASONAL ALLERGIC RHINITIS 08/17/2016 SIVA CARTAGENA APRN Ot R06.02 SHORTNESS OF BREATH 08/17/2016 SIVA CARTAGENA APRN Ot R09.02 HYPOXEMIA 08/17/2016 SIVA CARTAGENA IT ENGINEER Ot R53.83 OTHER FATIGUE 09/05/2016 SIVA CARTAGENA APRN Ot G89.29 OTHER CHRONIC PAIN 09/05/2016 SIVA CARTAGENA IT ENGINEER Ot J30.2 OTHER SEASONAL ALLERGIC RHINITIS 09/05/2016 SIVA CARTAGENA IT ENGINEER Ot R06.02 SHORTNESS OF BREATH 09/05/2016 SIVA CARTAGENA IT ENGINEER Ot R09.02 HYPOXEMIA 09/05/2016 SIVA CARTAGENA IT ENGINEER Ot R53.83 OTHER FATIGUE 09/20/2016 SIVA CARTAGENA IT ENGINEER Ot J30.2 OTHER SEASONAL ALLERGIC RHINITIS 09/20/2016 SIVA CARTAGENA APRN Ot R06.00 DYSPNEA, UNSPECIFIED 09/20/2016 SIVA CARTAGENA IT ENGINEER Ot R09.02 HYPOXEMIA 10/10/2016 SIVA CARTAGENA IT ENGINEER Ot J30.2 OTHER SEASONAL ALLERGIC RHINITIS 10/10/2016 SIVA CARTAGENA APRN Ot R06.00 DYSPNEA, UNSPECIFIED 10/10/2016 SIVA CARTAGENA IT ENGINEER Ot R09.02 HYPOXEMIA 10/18/2016 SIVA CARTAGENA APRN Ot J30.2 OTHER SEASONAL ALLERGIC RHINITIS 10/18/2016 SIVA CARTAGENA APRN Ot R06.00 DYSPNEA, UNSPECIFIED 10/18/2016 SIVA CARTAGENA IT ENGINEER Ot R09.02 HYPOXEMIA 11/03/2016 Ot 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 11/03/2016 Ot 788.30 UNSPECIFIED URINARY INCONTINENCE 11/03/2016 Ot V72.84 EXAM PRE- OPERATIVE NOS 11/03/2016 Ot V74.8 SCREEN- BACTERIAL DIS NEC 11/03/2016 ARIK CEBALLOS PA-C Ot I10 ESSENTIAL (PRIMARY) HYPERTENSION 11/03/2016 ARIK CEBALLOS PA-C Ot I20.9 ANGINA PECTORIS, UNSPECIFIED 11/03/2016 SIVA CARTAGENA APRN Ot G89.29 OTHER CHRONIC PAIN 11/03/2016 SIVA CARTAGENA APRN Ot J30.2 OTHER SEASONAL ALLERGIC RHINITIS 11/03/2016 SIVA CARTAGENA APRN Ot R06.02 SHORTNESS OF BREATH 11/03/2016 OSIEL, SIVA E IT ENGINEER Ot R09.02 HYPOXEMIA 11/03/2016 SIVA CARTAGENA IT ENGINEER Ot R53.83 OTHER FATIGUE 11/03/2016 SIVA CARTAGENA IT ENGINEER Ot J30.2 OTHER SEASONAL ALLERGIC RHINITIS 11/03/2016 SIVA CARTAGENA IT ENGINEER Ot R06.00 DYSPNEA, UNSPECIFIED 11/03/2016 SIVA CARTAGENA IT ENGINEER Ot R09.02 HYPOXEMIA 11/06/2016 Ot 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 11/06/2016 Ot 788.30 UNSPECIFIED URINARY INCONTINENCE 11/06/2016 Ot V72.84 EXAM PRE- OPERATIVE NOS 11/06/2016 Ot V74.8 SCREEN- BACTERIAL DIS NEC 11/06/2016 ARIK CEBALLOS PA-C Ot I10 ESSENTIAL (PRIMARY) HYPERTENSION 11/06/2016 ARIK CEBALLOS PA-C Ot I20.9 ANGINA PECTORIS, UNSPECIFIED 11/06/2016 SIVA CARTAGENA IT ENGINEER Ot G89.29 OTHER CHRONIC PAIN 11/06/2016 SIVA CARTAGENA IT ENGINEER Ot J30.2 OTHER SEASONAL ALLERGIC RHINITIS 11/06/2016 SIVA CARTAGENA IT ENGINEER Ot R06.02 SHORTNESS OF BREATH 11/06/2016 SIVA CARTAGENA IT ENGINEER Ot R09.02 HYPOXEMIA 11/06/2016 SIVA CARTAGENA IT ENGINEER Ot R53.83 OTHER FATIGUE 11/06/2016 SIVA CARTAGENA IT ENGINEER Ot J30.2 OTHER SEASONAL ALLERGIC RHINITIS 11/06/2016 SIVA CARTAGENA IT ENGINEER Ot R06.00 DYSPNEA, UNSPECIFIED 11/06/2016 SIVA CARTAGENA APRN Ot R09.02 HYPOXEMIA 11/07/2016 JACQUI JON DO Ot F03.90 UNSPECIFIED DEMENTIA WITHOUT BEHAVIORAL 11/07/2016 JACQUI JON DO Ot F41.9 ANXIETY DISORDER, UNSPECIFIED 11/07/2016 JACQUI JON DO Ot R06.02 SHORTNESS OF BREATH 11/07/2016 JACQUI JON DO Ot R53.83 OTHER FATIGUE 12/13/2016 JACQUI JON DO Ot F03.90 UNSPECIFIED DEMENTIA WITHOUT BEHAVIORAL 12/13/2016 JACQUI JON DO Ot F41.9 ANXIETY DISORDER, UNSPECIFIED 12/13/2016 JACQUI JON DO Ot R06.02 SHORTNESS OF BREATH 12/13/2016 JACQUI JON DO Ot R53.83 OTHER FATIGUE 12/21/2016 JACQUI JON DO Ot F03.90 UNSPECIFIED DEMENTIA WITHOUT BEHAVIORAL 12/21/2016 JACQUI JON DO Ot F41.9 ANXIETY DISORDER, UNSPECIFIED 12/21/2016 JACQUI JON DO Ot R06.02 SHORTNESS OF BREATH 12/21/2016 JACQUI JON DO Ot R53.83 OTHER FATIGUE 02/04/2017 JACQUI JON DO Ot F03.90 UNSPECIFIED DEMENTIA WITHOUT BEHAVIORAL 02/04/2017 JACQUI JON DO Ot F41.9 ANXIETY DISORDER, UNSPECIFIED 02/04/2017 JACQUI JON DO Ot R06.02 SHORTNESS OF BREATH 02/04/2017 JACQUI JON DO Ot R53.83 OTHER FATIGUE 02/06/2017 JACQUI JON DO Ot F03.90 UNSPECIFIED DEMENTIA WITHOUT BEHAVIORAL 02/06/2017 JACQUI JON DO Ot F41.9 ANXIETY DISORDER, UNSPECIFIED 02/06/2017 JACQUI JON DO Ot R06.02 SHORTNESS OF BREATH 02/06/2017 JACQUI JON DO Ot R53.83 OTHER FATIGUE 02/08/2017 JACQUI JON DO Ot F03.90 UNSPECIFIED DEMENTIA WITHOUT BEHAVIORAL 02/08/2017 JACQUI JON DO Ot F41.9 ANXIETY DISORDER, UNSPECIFIED 02/08/2017 JACQUI JON DO Ot R06.02 SHORTNESS OF BREATH 02/08/2017 JACQUI JON DO Ot R53.83 OTHER FATIGUE 02/08/2017 JACQUI JON DO Ot F03.90 UNSPECIFIED DEMENTIA WITHOUT BEHAVIORAL 02/08/2017 JACQUI JON DO Ot F41.9 ANXIETY DISORDER, UNSPECIFIED 02/08/2017 JACQUI JON DO Ot R06.02 SHORTNESS OF BREATH 02/08/2017 JACQUI JON DO Ot R53.83 OTHER FATIGUE 02/09/2017 JACQUI JON DO M Ot F03.90 UNSPECIFIED DEMENTIA WITHOUT BEHAVIORAL 02/09/2017 JACQUI JON DO Ot F41.9 ANXIETY DISORDER, UNSPECIFIED 02/09/2017 JACQUI JON DO Babak Ot R06.02 SHORTNESS OF BREATH 02/09/2017 DONTRELL DO JACQUI M Ot R53.83 OTHER FATIGUE 02/14/2017 DONTRELL DO JACQUI M Ot F03.90 UNSPECIFIED DEMENTIA WITHOUT BEHAVIORAL 02/14/2017 DONTRELL DO JACQUI Babak Ot F41.9 ANXIETY DISORDER, UNSPECIFIED 02/14/2017 DONTRELL DO JACQUI M Ot R06.02 SHORTNESS OF BREATH 02/14/2017 DONTRELL DO JACQUI M Ot R53.83 OTHER FATIGUE 03/14/2017 DONTRELL DO JACQUI M Ot F03.90 UNSPECIFIED DEMENTIA WITHOUT BEHAVIORAL 03/14/2017 DONTRELL DO JACQUI M Ot F41.9 ANXIETY DISORDER, UNSPECIFIED 03/14/2017 DONTRELL DO JACQUI M Ot R06.02 SHORTNESS OF BREATH 03/14/2017 DONTRELL DO JACQUI M Ot R53.83 OTHER FATIGUE 03/21/2017 DONTRELL DO JACQUI M Ot F03.90 UNSPECIFIED DEMENTIA WITHOUT BEHAVIORAL 03/21/2017 DONTRELL DOJACQUI Ot F41.9 ANXIETY DISORDER, UNSPECIFIED 03/21/2017 DONTRELL DO JACQUI M Ot R06.02 SHORTNESS OF BREATH 03/21/2017 DONTRELL DO JACQUI M Ot R53.83 OTHER FATIGUE 05/09/2017 DONTRELL DO JACQUI M Ot F03.90 UNSPECIFIED DEMENTIA WITHOUT BEHAVIORAL 05/09/2017 DONTRELL DOJACQUI Ot F41.9 ANXIETY DISORDER, UNSPECIFIED 05/09/2017 DONTRELL DOJACQUI M Ot R06.02 SHORTNESS OF BREATH 05/09/2017 DONTRELL DOJACQUI M Ot R53.83 OTHER FATIGUE 05/10/2017 DONTRELL DO JACQUI M Ot F03.90 UNSPECIFIED DEMENTIA WITHOUT BEHAVIORAL 05/10/2017 DONTRELL DOJACQUI Ot F41.9 ANXIETY DISORDER, UNSPECIFIED 05/10/2017 DONTRELL DO JACQUI M Ot R06.02 SHORTNESS OF BREATH 05/10/2017 DONTRELL DO JACQUI M Ot R53.83 OTHER FATIGUE Procedures There is no data. Results Test Result Range Complete blood count (CBC) with automated white blood cell (WBC) differential - 07/17/16 17:05 Blood leukocytes automated count (number/volume) 9.9 10*3/uL 4.3-11.0 Blood erythrocytes automated count (number/volume) 3.73 10*6/uL 4.35-5.85 Venous blood hemoglobin measurement (mass/volume) 12.1 g/dL 11.5-16.0 Blood hematocrit (volume fraction) 37 % 35-52 Automated erythrocyte mean corpuscular volume 100 [foz_us] 80-99 Automated erythrocyte mean corpuscular hemoglobin (mass per erythrocyte) 32 pg 25-34 Automated erythrocyte mean corpuscular hemoglobin concentration measurement ( mass/volume) 32 g/dL 32-36 Automated erythrocyte distribution width ratio 12.0 % 10.0-14.5 Automated blood platelet count (count/volume) 231 10*3/uL 130-400 Automated blood platelet mean volume measurement 10.8 [foz_us] 7.4-10.4 Automated blood neutrophils/100 leukocytes 80 % 42-75 Automated blood lymphocytes/100 leukocytes 14 % 12-44 Blood monocytes/100 leukocytes 5 % 0-12 Automated blood eosinophils/100 leukocytes 0 % 0-10 Automated blood basophils/100 leukocytes 0 % 0-10 Blood neutrophils automated count (number/volume) 8.0 10*3 1.8-7.8 Blood lymphocytes automated count (number/volume) 1.4 10*3 1.0-4.0 Blood monocytes automated count (number/volume) 0.5 10*3 0.0-1.0 Automated eosinophil count 0.0 10*3/uL 0.0-0.3 Automated blood basophil count (count/volume) 0.0 10*3/uL 0.0-0.1 PT panel in platelet poor plasma by coagulation assay - 07/17/16 17:05 Prothrombin time (PT) in platelet poor plasma by coagulation assay 12.8 s 12.2-14.7 INR in platelet poor plasma or blood by coagulation assay 1.0 0.8-1.4 Activated partial thromboplastin time (aPTT) in platelet poor plasma bycoagulation assay - 07/17/16 17:05 Activated partial thromboplastin time (aPTT) in platelet poor plasma bycoagulation assay 26 s 24-35 Comprehensive metabolic panel - 07/17/16 17:05 Serum or plasma sodium measurement (moles/volume) 141 mmol/L 135-145 Serum or plasma potassium measurement (moles/volume) 4.2 mmol/L 3.6-5.0 Serum or plasma chloride measurement (moles/volume) 104 mmol/L 98-107 Carbon dioxide 28 mmol/L 21-32 Serum or plasma anion gap determination (moles/volume) 9 mmol/L 5-14 Serum or plasma urea nitrogen measurement (mass/volume) 15 mg/dL 7-18 Serum or plasma creatinine measurement (mass/volume) 0.81 mg/dL 0.60-1.30 Serum or plasma urea nitrogen/creatinine mass ratio 19 NRG Serum or plasma creatinine measurement with calculation of estimated glomerular filtration rate > NRG Serum or plasma glucose measurement (mass/volume) 159 mg/dL 70-105 Serum or plasma calcium measurement (mass/volume) 9.7 mg/dL 8.5-10.1 Serum or plasma total bilirubin measurement (mass/volume) 0.3 mg/dL 0.1-1.0 Serum or plasma alkaline phosphatase measurement (enzymatic activity/volume) 78 U/L 40-136 Serum or plasma aspartate aminotransferase measurement (enzymatic activity/ volume) 18 U/L 5-34 Serum or plasma alanine aminotransferase measurement (enzymatic activity/volume ) 23 U/L 0-55 Serum or plasma protein measurement (mass/volume) 5.9 g/dL 6.4-8.2 Serum or plasma albumin measurement (mass/volume) 3.8 g/dL 3.2-4.5 Magnesium - 07/17/16 17:05 Magnesium 2.2 mg/dL 1.8-2.4 Serum or plasma troponin i.cardiac measurement (mass/volume) - 07/17/16 17:05 Serum or plasma troponin i.cardiac measurement (mass/volume) < ng/ mL <0.30 Myoglobin, serum - 07/17/16 17:05 Myoglobin, serum 27.7 ng/mL 10.0-92.0 Complete urinalysis with reflex to culture - 07/17/16 20:39 Urine color determination YELLOW NRG Urine clarity determination CLEAR NRG Urine pH measurement by test strip 7 5-9 Specific gravity of urine by test strip 1.010 1.016- 1.022 Urine protein assay by test strip, semi-quantitative NEGATIVE NEGATIVE Urine glucose detection by automated test strip NEGATIVE NEGATIVE Erythrocytes detection in urine sediment by light microscopy 2+ NEGATIVE Urine ketones detection by automated test strip NEGATIVE NEGATIVE Urine nitrite detection by test strip NEGATIVE NEGATIVE Urine total bilirubin detection by test strip NEGATIVE NEGATIVE Urine urobilinogen measurement by automated test strip (mass/volume) NORMAL NORMAL Urine leukocyte esterase detection by dipstick 3+ NEGATIVE Automated urine sediment erythrocyte count by microscopy (number/high power field) [HPF] NRG Automated urine sediment leukocyte count by microscopy (number/high power field ) [HPF] NRG Bacteria detection in urine sediment by light microscopy FEW NRG Squamous epithelial cells detection in urine sediment by light microscopy RARE NRG Crystals detection in urine sediment by light microscopy NONE NRG Casts detection in urine sediment by light microscopy NONE NRG Mucus detection in urine sediment by light microscopy NEGATIVE NRG Complete urinalysis with reflex to culture YES NRG Bacterial urine culture - 07/17/16 20:39 Bacterial urine culture [id number] NRG COLONY COUNT >100,000/ML NRG FTX;REPORTABLE SENSITIVITY REPORTED 07/19/16 7:35 NRG Bacterial susceptibility panel - 07/17/16 20:39 Gentamicin susceptibility test by minimum inhibitory concentration < = NRG Trimethoprim/sulfamethoxazole susceptibility test by minimum inhibitoryconcentration <= NRG Ampicillin susceptibility test by minimum inhibitory concentration < = NRG Tobramycin susceptibility test by minimum inhibitory concentration < = NRG Cefazolin susceptibility test by minimum inhibitory concentration 8 NRG Ceftriaxone susceptibility test by minimum inhibitory concentration <= NRG Ampicillin/sulbactam susceptibility test by minimum inhibitory concentration <= NRG Piperacillin/tazobactam susceptibility test by minimum inhibitory concentration <= NRG Ciprofloxacin susceptibility test by minimum inhibitory concentration <= NRG Meropenem susceptibility test by minimum inhibitory concentration 0.5 NRG Nitrofurantoin susceptibility test by minimum inhibitory concentration >= NRG Aztreonam susceptibility test by minimum inhibitory concentration < = NRG Automated blood complete blood count (hemogram) panel - 07/18/16 03:55 Blood leukocytes automated count (number/volume) 10.9 10*3/uL 4.3-11.0 Blood erythrocytes automated count (number/volume) 3.35 10*6/uL 4.35-5.85 Venous blood hemoglobin measurement (mass/volume) 11.0 g/dL 11.5-16.0 Blood hematocrit (volume fraction) 33 % 35-52 Automated erythrocyte mean corpuscular volume 99 [foz_us] 80-99 Automated erythrocyte mean corpuscular hemoglobin (mass per erythrocyte) 33 pg 25-34 Automated erythrocyte mean corpuscular hemoglobin concentration measurement ( mass/volume) 33 g/dL 32-36 Automated erythrocyte distribution width ratio 11.7 % 10.0-14.5 Automated blood platelet count (count/volume) 199 10*3/uL 130-400 Automated blood platelet mean volume measurement 11.3 [foz_us] 7.4-10.4 Whole blood basic metabolic panel - 07/18/16 03:55 Serum or plasma sodium measurement (moles/volume) 140 mmol/L 135-145 Serum or plasma potassium measurement (moles/volume) 4.3 mmol/L 3.6-5.0 Serum or plasma chloride measurement (moles/volume) 109 mmol/L 98-107 Carbon dioxide 21 mmol/L 21-32 Serum or plasma anion gap determination (moles/volume) 10 mmol/L 5-14 Serum or plasma urea nitrogen measurement (mass/volume) 14 mg/dL 7-18 Serum or plasma creatinine measurement (mass/volume) 0.68 mg/dL 0.60-1.30 Serum or plasma urea nitrogen/creatinine mass ratio 21 NRG Serum or plasma creatinine measurement with calculation of estimated glomerular filtration rate > NRG Serum or plasma glucose measurement (mass/volume) 156 mg/dL 70-105 Serum or plasma calcium measurement (mass/volume) 9.0 mg/dL 8.5-10.1 Serum or plasma phosphate measurement (mass/volume) - 07/18/16 03:55 Serum or plasma phosphate measurement (mass/volume) 2.8 mg/dL 2.3-4.7 Magnesium - 07/18/16 03:55 Magnesium 2.1 mg/dL 1.8-2.4 Lipid 1996 panel - 07/18/16 03:55 Serum or plasma triglyceride measurement (mass/volume) 37 mg/dL <150 Serum or plasma cholesterol measurement (mass/volume) 153 mg/dL < 200 Serum or plasma cholesterol in HDL measurement (mass/volume) 51 mg/ dL 40-60 Cholesterol in LDL [mass/volume] in serum or plasma by direct assay 92 mg/dL 1-129 Serum or plasma cholesterol in VLDL measurement (mass/volume) 7 mg/ dL 5-40 Arterial blood gas measurement - 08/16/16 14:54 Blood pCO2 51 mm[Hg] 35-45 Blood pO2 89 mm[Hg] 79-93 Arterial blood bicarbonate measurement (moles/volume) 31 mmol/L 23-27 Arterial blood base excess by calculation 4.6 mmol/L -2.5 -2.5 Arterial blood oxygen saturation measurement 97 % 94-100 * Inhaled oxygen flow rate 2L NRG Arterial blood pH measurement with patient temperature correction 7.39 7.37-7.43 Arterial blood carbon dioxide, total measurement (moles/volume) 32.6 mmol/L 21.0-31.0 Body site LT WRIST NRG Assessment of wrist artery patency prior to arterial puncture NA NRG Setting of ventilation mode NO NRG Measurement of body temperature 96.4 NRG Encounters ACCT No. Visit Date/Time Discharge Status Pt. Type Provider Facility Loc./Unit Complaint [id number] 05/10/2017 13:00:00 05/10/2017 23:59:59 CLS Preadmit JACQUI JON DO [facility] DEMENTIA,SOB,FATIGUE [id number] 03/27/2017 14:30:00 05/09/2017 00:01:00 DIS Outpatient JACQUI JON DO [facility] PUL DEMENTIA,SOB,FATIGUE [id number] 01/23/2017 14:30:00 02/04/2017 00:01:00 DIS Outpatient JACQUI JON DO [facility] PUL DEMENTIA,SOB,FATIGUE [id number] 09/19/2016 14:06:00 09/19/2016 23:59:59 CLS Outpatient SIVA CARTAGENA APRN [facility] RAD SOB,SEASONAL ALLERGIES [id number] 08/16/2016 14:27:00 08/16/2016 23:59:59 CLS Outpatient SIVA CARTAGENA APRN [facility] RT R06.00,J30.2,R09.02 [id number] 07/17/2016 17:47:00 07/18/2016 11:00:00 DIS Outpatient BRENDEN CARTER MD [facility] CATH CHEST PAIN [id number] 06/21/2016 11:48:00 06/21/2016 23:59:59 CLS Outpatient ARIK CEBALLOS PA-C [facility] CARD ANGINA, HTN [id number] 02/24/2016 12:02:00 02/24/2016 16:38:00 DIS Emergency BIMAL FORD, FELIBERTO Trejo [facility] ER SYNCOPE [id number] 12/07/2017 11:52:00 Document Registration [id number] 02/05/2015 12:46:00 Document Registration [id number] 12/30/2014 13:09:00 Document Registration
[2017-12-07] MEDS: MEROPENEM 500 MG/D5W 100 ML IVPB IV SCH ×4 (16:08→21:49)
[2017-12-07] MEDS: eZETimibe 10 MG (ZETIA) TABLET PO SCH (18:14)
[2017-12-07] MEDS: ALPRAZolam 0.25 MG (XANAX) TAB PO SCH (18:14)
[2017-12-07] MEDS: ASPIRIN E.C. 81 MG (ECOTRIN) TAB PO SCH (18:14)
[2017-12-07] MEDS: VANCOMYCIN 1250 MG/NS 250 ML IVPB IV SCH ×2 (19:21)
[2017-12-08 00:20] VITALS: BP 113/56
[2017-12-08 04:52] VITALS: BP 140/63
[2017-12-08] MEDS: predniSONE 5 MG TAB PO SCH (06:32)
[2017-12-08] MEDS: MEROPENEM 500 MG/D5W 100 ML IVPB IV SCH ×2 (06:32)
[2017-12-08] MEDS: LEVOTHYROXINE 88 MCG (LEVOTHORID) TAB PO SCH (06:32)
[2017-12-08 08:19] VITALS: BP 134/62
[2017-12-08] MEDS: lisINopril 20 MG (PRINIVIL) TABLET PO SCH ×2 (09:41→20:28)
[2017-12-08] MEDS: risperiDONE 0.25 MG (RisperDAL) TAB PO SCH (09:41)
[2017-12-08] MEDS: VITAMIN D3 1,000 UNITS (CHOLECALCIFEROL) TABLET PO SCH (09:42)
[2017-12-08] MEDS: DONEPEZIL 10 MG (ARICEPT) TAB PO SCH (09:42)
[2017-12-08] MEDS: PARoxetine 10 MG (PAXIL) TAB PO SCH ×2 (09:42→20:28)
[2017-12-08] MEDS: SIMETHICONE 80 MG (MYLICON) CHEW PO SCH ×2 (09:42→20:28)
[2017-12-08] MEDS: MEMANTINE 10 MG (NAMENDA) TABLET PO SCH ×2 (09:42→20:28)
--- NOTE | 2017-12-08 09:57 | Cardiology Progress Note ---
Subjective Date Seen by Provider: Dec 08, 2017 Time Seen by Provider: 09:56 Subjective/Events-last exam Patient is in bed, slightly more awake. Responding appropriately. Still lethargic. Review of Systems General: No Chills, No Night Sweats, Fatigue, Malaise, No Appetite, No Other HEENT: No Head Aches, No Visual Changes, No Eye Pain, No Ear Pain, No Dysphasia , No Sinus Congestion, No Post Nasal Drip, No Sore Throat, No Other Pulmonary: Dyspnea, No Cough, No Pleuritic Chest Pain, No Other Cardiovascular: Edema, No: Chest Pain, Palpitations, Orthopnea, Paroxysmal Noc. Dyspnea, Lt Headedness, Other Objective-Cardiology Exam Last Set of Vital Signs Vital Signs 12/08/17 08:19 Temp 97.9 Pulse 75 Resp 16 B/P (MAP) 134/62 (86) Pulse Ox 99 O2 Delivery Nasal Cannula O2 Flow Rate 1.50 Capillary Refill : I&O Intake and Output 12/08/17 00:00 Intake Total 840 ml Output Total 1550 ml Balance -710 ml Intake Oral 840 ml Output Urine Total 1550 ml General: Alert, Cooperative, Mild Distress HEENT: Atraumatic, PERRLA Neck: Supple, No JVD, No Thyromegaly Lungs: Clear to Auscultation, Normal Air Movement Heart: Regular Rate, Normal S1, Normal S2, Other (Systolic murmur) Abdomen: Normal Bowel Sounds, Soft, No Tenderness, No Hepatosplenomegaly, No Masses Extremities: No Clubbing, No Cyanosis, No Edema, Normal Pulses, No Tenderness/ Swelling Skin: No Rashes, No Breakdown, No Significant Lesion Neuro: Normal Tone, Sensation Intact Psych/Mental Status: Mood NL, Other (Confused) A/P-Cardiology Admission Diagnosis Change in mental status Recurrent UTI Coronary artery disease Malignant hypertension Assessment/Plan Change in mental status, lethargy, confusion, recurrent UTI, receiving antibiotic, managed by primary care team. Improving today. Continue to monitor Generalized weakness and loss of energy, more responsive today. Continue to monitor. Abnormal EKG, right bundle branch block, nonspecific T wave abnormality. Appeared to be chronic. Cardiac enzymes were negative, continue to monitor. Coronary artery disease, mild per cardiac catheterization done on July 17, 2016, continue to monitor at this time. Echocardiogram done in [facility] showing normal left ventricular size with left ventricular hypertrophy ejection fraction 60-65 percent, continue to monitor Malignant hypertension, resistant to multiple medication, her change in mental status could be due to episode of severe hypotension, blood pressure is better controlled at this time. I will continue monitoring Hyperlipidemia, monitor lipids. Generalized body ache, unable to tolerate statin. Dementia, progressive, change in mental status. Currently confused Osteoarthritis, maintained on steroids. Clinical Quality Measures DVT/VTE Risk/Contraindication: Risk Factor Score Per Nursin RFS Level Per Nursing on Admit: 3=High BRENDEN CARTER MD Dec 08, 2017 09:57
[2017-12-08] MEDS: FLUTICASONE NASAL SPRAY (FLONASE) 16 GM BTL NS SCH ×2 (10:25→20:28)
[2017-12-08 12:00] VITALS: BP 117/57
--- NOTE | 2017-12-08 12:02 | Physical Therapy Progress Note ---
Therapy Progress Note Pt. asleep in bed. She opens eyes only momentarily to call of name. Several attempts to increase pt. alertness but she opens eyes only momentarily, does not correspond with therapist. Unable to complete evaluation at this time. We will check back 12/10. 1, visit only NATIVIDAD MARSHALL PT Dec 08, 2017 12:02
--- NOTE | 2017-12-08 12:49 | Progress Note-Hospitalist ---
Progress Note HPI/CC on Admission CC: AMS w/syncope HPI: This is an 87-year-old white female DO NOT RESUSCITATE long term patient of Dr. Wright's who was accepted in transfer from Dr. Tejeda due to syncopal episode with altered mental status and EKG changes consistent with acute ischemia and possible non-ST elevation [place]. Upon further assessment she was found to have recurrent UTI history of ESBL so she was placed on empiric antibiotics of vancomycin and meropenem broad-spectrum after urine culture obtained and Dr. Tejeda evaluated in EKG from 2005 and found no changes to those ST segments so she is currently stable but sleeping soundly and it does not appear she is very active and given the rest of her comorbidities her prognosis appears to be poor but will transfer back down to fourth floor maintain IV antibiotics until urine culture is completed and we have restarted most of her home medications. Progress Notes/Assess & Plan Date Seen 12/08/17 Time Seen by Provider: 11:15 Admission Dx/Process Assessment: Altered mental status with syncopal episode with changes to EKG prompting transfer to higher level of care for presumed non-ST elevation [place] now disproved by Dr. Tejeda after no change noted on EKG compared to 2005 UTI likely ESBL or resistant organism Dementia with chronic debility resides in a long term with poor long-term prognosis DO NOT RESUSCITATE Hypertension Leukocytosis now resolved Diagonsis/Assessment & Plan Patient doesn't really move around and sleeps most of the time 850 percent of breakfast that she is taking oral intake and No BM for a few days so we'll start MiraLAX and lactulose Patient is a hospice candidate she is not recovering at all Urine culture reviewed stopped meropenem and maintain thank for enterococcus and Diflucan initiated for urine culture results of yeast and within the folds of abdominal scan and also adding nystatin cream and powder Will update primary care provider Dr. Wright on Sunday regarding hospice to long term Drowsy, opens her eyes, answers questions appropriately but briefly answers Regular rate and rhythm, clear to auscultation bilaterally but anterior exam only Noted trace edema Assessment: Altered mental status with syncopal episode with changes to EKG prompting transfer to higher level of care for presumed non-ST elevation [place] now disproved by Dr. Tejeda after no change noted on EKG compared to 2005 UTI presumed ESBL or resistant organism but UCx reveals Enterococcus so maintaining Vanc and stopping Kendal Dementia with chronic debility resides in a long term with poor long-term prognosis DO NOT RESUSCITATE Hypertension Leukocytosis Yeast in urine and folds of skin Plan: Maintain IV antibiotics of Vanc Add yeast tx Supportive care Transfer to fourth floor DO NOT RESUSCITATE Home medication Long-term prognosis very poor Patient recovering so will be a hospice candidate on Sunday to long term CURT CARRANZA DO Dec 08, 2017 12:49
[2017-12-08] MEDS: CYANOCOBALAMIN 500 MCG TAB (VITAMIN B-12) PO SCH (13:58)
[2017-12-08] MEDS: POLYETHYLENE GLYCOL 17 GM (MIRALAX) PACK PO SCH ×2 (13:58→20:27)
[2017-12-08] MEDS: FLUCONAZOLE 100 MG/50 ML 50 ML IV SCH (13:58)
[2017-12-08] MEDS: NYSTATIN CREAM (MYCOSTATIN) 30 GM TUBE TP SCH ×2 (13:58→20:29)
[2017-12-08] MEDS: LACTULOSE SYRUP 10GM/15ML (ENULOSE) 30ML UDC PO SCH ×2 (14:16→20:27)
[2017-12-08 15:26] VITALS: BP 117/54
[2017-12-08] MEDS: ALPRAZolam 0.25 MG (XANAX) TAB PO SCH (17:00)
[2017-12-08] MEDS: ASPIRIN E.C. 81 MG (ECOTRIN) TAB PO SCH (17:00)
[2017-12-08] MEDS: eZETimibe 10 MG (ZETIA) TABLET PO SCH (17:00)
[2017-12-08] MEDS: VANCOMYCIN 1250 MG/NS 250 ML IVPB IV SCH ×2 (18:26)
[2017-12-08 19:41] VITALS: BP 120/60
[2017-12-08] MEDS: MICONAZOLE 2% POWDER (DESENEX AF) 90 GM TOP SCH (20:29)
[2017-12-09] VITALS: BP 133/61
[2017-12-09 04:17] VITALS: BP 145/64
[2017-12-09 04:56] LABS: BASOPHILS % (AUTO) 0 % (0-10); EOSINOPHILS # (AUTO) 0.2 10^3/uL (0.0-0.3); EOSINOPHILS % (AUTO) 2 % (0-10); HEMATOCRIT 36 % (35-52); HEMOGLOBIN 11.8 G/DL (11.5-16.0); LYMPHOCYTES # (AUTO) 2.6 X 10^3 (1.0-4.0); LYMPHOCYTES % (AUTO) 25 % (12-44); MEAN CORPUSCULAR HEMOGLOBIN 32 PG (25-34); MEAN CORPUSCULAR HGB CONC 33 G/DL (32-36); MEAN CORPUSCULAR VOLUME 98 FL (80-99); MEAN PLATELET VOLUME 11.3 FL (7.4-10.4); MONOCYTES % (AUTO) 10 % (0-12); NEUTROPHILS # (AUTO) 6.3 X 10^3 (1.8-7.8); NEUTROPHILS % (AUTO) 62 % (42-75); PLATELET COUNT 255 10^3/uL (130-400); RED BLOOD COUNT 3.67 10^6/uL (4.35-5.85); RED CELL DISTRIBUTION WIDTH 12.2 % (10.0-14.5); WHITE BLOOD COUNT 10.1 10^3/uL (4.3-11.0)
[2017-12-09 05:24] LABS: ALANINE AMINOTRANSFERASE 21 U/L (0-55); ALBUMIN 3.1 GM/DL (3.2-4.5); ALKALINE PHOSPHATASE 75 U/L (40-136); BILIRUBIN,TOTAL 0.5 MG/DL (0.1-1.0); BUN/CREATININE RATIO 24; CALCIUM 9.6 MG/DL (8.5-10.1); CARBON DIOXIDE 24 MMOL/L (21-32); CHLORIDE 109 MMOL/L (98-107); CREATININE SERUM 0.71 MG/DL (0.60-1.30); GFR ESTIMATED > 60; GLUCOSE 104 MG/DL (70-105); POTASSIUM 3.7 MMOL/L (3.6-5.0); SODIUM 140 MMOL/L (135-145); TOTAL PROTEIN 5.1 GM/DL (6.4-8.2)
[2017-12-09] MEDS: LEVOTHYROXINE 88 MCG (LEVOTHORID) TAB PO SCH (06:00)
[2017-12-09] MEDS: predniSONE 5 MG TAB PO SCH (06:00)
[2017-12-09 08:08] VITALS: BP 128/61
[2017-12-09] MEDS ORDERED: CLONIDINE PATCH REMOVAL TP SCH (08:59)
[2017-12-09] MEDS ORDERED: cloNIDine 0.1 MG PATCH (CATAPRES TTS) TDSY TD SCH (09:00)
[2017-12-09] MEDS: LACTULOSE SYRUP 10GM/15ML (ENULOSE) 30ML UDC PO SCH ×2 (09:39→20:36)
[2017-12-09] MEDS: lisINopril 20 MG (PRINIVIL) TABLET PO SCH ×2 (09:39→20:36)
[2017-12-09] MEDS: VITAMIN D3 1,000 UNITS (CHOLECALCIFEROL) TABLET PO SCH (09:39)
[2017-12-09] MEDS: POLYETHYLENE GLYCOL 17 GM (MIRALAX) PACK PO SCH ×2 (09:39→20:36)
[2017-12-09] MEDS: risperiDONE 0.25 MG (RisperDAL) TAB PO SCH (09:40)
[2017-12-09] MEDS: MEMANTINE 10 MG (NAMENDA) TABLET PO SCH ×2 (09:40→20:36)
[2017-12-09] MEDS: FLUTICASONE NASAL SPRAY (FLONASE) 16 GM BTL NS SCH ×2 (09:40→20:36)
[2017-12-09] MEDS: PARoxetine 10 MG (PAXIL) TAB PO SCH ×2 (09:40→20:36)
[2017-12-09] MEDS: DONEPEZIL 10 MG (ARICEPT) TAB PO SCH (09:40)
[2017-12-09] MEDS: FLUCONAZOLE 100 MG/50 ML 50 ML IV SCH (09:40)
[2017-12-09] MEDS: NYSTATIN CREAM (MYCOSTATIN) 30 GM TUBE TP SCH ×3 (09:40→20:37)
[2017-12-09] MEDS: MICONAZOLE 2% POWDER (DESENEX AF) 90 GM TOP SCH ×2 (09:40→20:37)
[2017-12-09] MEDS: SIMETHICONE 80 MG (MYLICON) CHEW PO SCH ×2 (09:40→20:35)
[2017-12-09] MEDS: CYANOCOBALAMIN 500 MCG TAB (VITAMIN B-12) PO SCH (11:45)
--- NOTE | 2017-12-09 11:45 | Progress Note-Hospitalist ---
Progress Note HPI/CC on Admission CC: AMS w/syncope HPI: This is an 87-year-old white female DO NOT RESUSCITATE group home patient of Dr. Wright'arcelia who was accepted in transfer from Dr. Tejeda due to syncopal episode with altered mental status and EKG changes consistent with acute ischemia and possible non-ST elevation [place]. Upon further assessment she was found to have recurrent UTI history of ESBL so she was placed on empiric antibiotics of vancomycin and meropenem broad-spectrum after urine culture obtained and Dr. Tejeda evaluated in EKG from 2005 and found no changes to those ST segments so she is currently stable but sleeping soundly and it does not appear she is very active and given the rest of her comorbidities her prognosis appears to be poor but will transfer back down to fourth floor maintain IV antibiotics until urine culture is completed and we have restarted most of her home medications. Progress Notes/Assess & Plan Date Seen 12/09/17 Time Seen by Provider: 11:00 Admission Dx/Process Assessment: Altered mental status with syncopal episode with changes to EKG prompting transfer to higher level of care for presumed non-ST elevation [place] now disproved by Dr. Tejeda after no change noted on EKG compared to 2005 UTI likely ESBL or resistant organism Dementia with chronic debility resides in a group home with poor long-term prognosis DO NOT RESUSCITATE Hypertension Leukocytosis now resolved Diagonsis/Assessment & Plan Grandreynoldughter is at bedside but is leaving for [place] and her sister Kailey is the one that makes decisions for her Previously was at home and arm a before going to [facility] and she thinks that [facility] would be the place they would pick for skilled care Vancomycin still remains until transition to oral antibiotics tomorrow at discharge Evacuated bowels on Sunday so MiraLAX was the only thing that was given per nurse Lovenox will be started since she doesn't move around until later in the day Drowsy, opens her eyes, answers questions appropriately but briefly answers Regular rate and rhythm, clear to auscultation bilaterally but anterior exam only Noted trace edema Assessment: Altered mental status with syncopal episode with changes to EKG prompting transfer to higher level of care for presumed non-ST elevation [place] now disproved by Dr. Tejeda after no change noted on EKG compared to 2005 UTI presumed ESBL or resistant organism but UCx reveals Enterococcus so maintaining Vanc and stopping Kendal Dementia with chronic debility resides in a group home with poor long-term prognosis DO NOT RESUSCITATE Hypertension Leukocytosis Yeast in urine and folds of skin Poor mobility and previous was ambulating so Lovenox started Plan: Maintain IV antibiotics of Vanc until DC tomorrow Maintain yeast tx Supportive care DO NOT RESUSCITATE Long-term prognosis very poor Patient recovering so will be a hospice candidate on Sunday to group home or skilled care in case she can recover Lovenox for DVT Px CURT CARRANZA DO Dec 09, 2017 11:45
[2017-12-09 12:00] VITALS: BP 134/64
[2017-12-09] MEDS: ENOXAPARIN 40 MG/0.4 ML (LOVENOX) SYR SC SCH (13:12)
[2017-12-09 15:18] VITALS: BP 129/60
[2017-12-09] MEDS: ALPRAZolam 0.25 MG (XANAX) TAB PO SCH (17:16)
[2017-12-09] MEDS: eZETimibe 10 MG (ZETIA) TABLET PO SCH (17:16)
[2017-12-09] MEDS: ASPIRIN E.C. 81 MG (ECOTRIN) TAB PO SCH (17:17)
[2017-12-09] MEDS ORDERED: TROUGH ORDER-PHARMACY XX NR (18:30)
[2017-12-09] MEDS: VANCOMYCIN 1250 MG/NS 250 ML IVPB IV SCH ×2 (20:36)
[2017-12-09 20:44] VITALS: BP 158/69
[2017-12-10 00:16] VITALS: BP 136/62
[2017-12-10 04:10] VITALS: BP 120/70
[2017-12-10] MEDS: LEVOTHYROXINE 88 MCG (LEVOTHORID) TAB PO SCH (05:35)
[2017-12-10] MEDS: predniSONE 5 MG TAB PO SCH (05:35)
[2017-12-10 06:35] LABS: BASOPHILS % (AUTO) 0 % (0-10); EOSINOPHILS # (AUTO) 0.2 10^3/uL (0.0-0.3); EOSINOPHILS % (AUTO) 3 % (0-10); HEMATOCRIT 34 % (35-52); HEMOGLOBIN 11.1 G/DL (11.5-16.0); LYMPHOCYTES # (AUTO) 2.9 X 10^3 (1.0-4.0); LYMPHOCYTES % (AUTO) 35 % (12-44); MEAN CORPUSCULAR HEMOGLOBIN 32 PG (25-34); MEAN CORPUSCULAR HGB CONC 33 G/DL (32-36); MEAN CORPUSCULAR VOLUME 99 FL (80-99); MEAN PLATELET VOLUME 11.8 FL (7.4-10.4); MONOCYTES % (AUTO) 12 % (0-12); NEUTROPHILS # (AUTO) 4.2 X 10^3 (1.8-7.8); NEUTROPHILS % (AUTO) 51 % (42-75); PLATELET COUNT 209 10^3/uL (130-400); RED BLOOD COUNT 3.43 10^6/uL (4.35-5.85); RED CELL DISTRIBUTION WIDTH 12.1 % (10.0-14.5); WHITE BLOOD COUNT 8.2 10^3/uL (4.3-11.0)
[2017-12-10 07:00] LABS: ALANINE AMINOTRANSFERASE 17 U/L (0-55); ALBUMIN 2.9 GM/DL (3.2-4.5); ALKALINE PHOSPHATASE 73 U/L (40-136); BILIRUBIN,TOTAL 0.4 MG/DL (0.1-1.0); BUN/CREATININE RATIO 25; CALCIUM 9.4 MG/DL (8.5-10.1); CARBON DIOXIDE 26 MMOL/L (21-32); CHLORIDE 108 MMOL/L (98-107); CREATININE SERUM 0.65 MG/DL (0.60-1.30); GFR ESTIMATED > 60; GLUCOSE 89 MG/DL (70-105); POTASSIUM 3.6 MMOL/L (3.6-5.0); SODIUM 141 MMOL/L (135-145); TOTAL PROTEIN 4.8 GM/DL (6.4-8.2)
[2017-12-10 08:19] VITALS: BP 167/72
--- NOTE | 2017-12-10 08:28 | Cardiology Progress Note ---
Subjective Date Seen by Provider: Dec 10, 2017 Time Seen by Provider: 08:26 Subjective/Events-last exam Patient asleep in bed, no apparent distress. Review of Systems General: Night Sweats Pulmonary: No Dyspnea Cardiovascular: No: Chest Pain, Palpitations Gastrointestinal: No: Nausea, Abdominal Pain Musculoskeletal: No: neck pain, back pain Neurological: No: Change in speech Objective-Cardiology Exam Last Set of Vital Signs Vital Signs 12/10/17 08:19 Temp 98.8 Pulse 85 Resp 16 B/P (MAP) 167/72 (103) Pulse Ox 98 O2 Delivery Nasal Cannula O2 Flow Rate 2.00 Capillary Refill : I&O Intake and Output 12/10/17 00:00 Intake Total 1392.5 ml Output Total 1500 ml Balance -107.5 ml Intake Oral 1130 ml IV Total 262.5 ml Output Urine Total 1500 ml General: Alert, Cooperative, Mild Distress HEENT: Atraumatic, PERRLA Neck: Supple, No JVD, No Thyromegaly Lungs: Clear to Auscultation, Normal Air Movement Heart: Regular Rate, Normal S1, Normal S2, Other (Systolic murmur) Abdomen: Normal Bowel Sounds, Soft, No Tenderness, No Hepatosplenomegaly, No Masses Extremities: No Clubbing, No Cyanosis, No Edema, Normal Pulses, No Tenderness/ Swelling Skin: No Rashes, No Breakdown, No Significant Lesion Neuro: Normal Tone, Sensation Intact Psych/Mental Status: Mood NL, Other (Confused) Results Lab Laboratory Tests 12/10/17 05:42 A/P-Cardiology Admission Diagnosis Change in mental status Recurrent UTI Coronary artery disease Malignant hypertension Assessment/Plan Change in mental status, lethargy, confusion, recurrent UTI, receiving antibiotic, managed by primary care team. Slowly improving. Continue to monitor Generalized weakness and loss of energy,slowly improving. Continue to monitor. Abnormal EKG, right bundle branch block, nonspecific T wave abnormality. Appeared to be chronic. Cardiac enzymes were negative, continue to monitor. Coronary artery disease, mild per cardiac catheterization done on July 17, 2016, continue to monitor at this time. Echocardiogram done in [facility] showing normal left ventricular size with left ventricular hypertrophy ejection fraction 60-65 percent, continue to monitor Malignant hypertension, resistant to multiple medication, her change in mental status could be due to episode of severe hypotension, blood pressure is better controlled at this time. I will continue monitoring Hyperlipidemia, monitor lipids. Generalized body ache, unable to tolerate statin. Dementia, progressive, change in mental status. Osteoarthritis, maintained on steroids. Clinical Quality Measures DVT/VTE Risk/Contraindication: Risk Factor Score Per Nursin RFS Level Per Nursing on Admit: 3=High SERGEY NOVAK Dec 10, 2017 08:28
--- NOTE | 2017-12-10 08:42 | Cardiology Progress Note ---
Subjective Date Seen by Provider: Dec 10, 2017 Time Seen by Provider: 08:40 Subjective/Events-last exam Patient is laying down in bed, sleeping, no new complaint. Review of Systems General: Fatigue, Malaise, Other Objective-Cardiology Exam Last Set of Vital Signs Vital Signs 12/10/17 08:19 Temp 98.8 Pulse 85 Resp 16 B/P (MAP) 167/72 (103) Pulse Ox 98 O2 Delivery Nasal Cannula O2 Flow Rate 2.00 Capillary Refill : I&O Intake and Output 12/10/17 00:00 Intake Total 1392.5 ml Output Total 1500 ml Balance -107.5 ml Intake Oral 1130 ml IV Total 262.5 ml Output Urine Total 1500 ml General: Cooperative, No Acute Distress HEENT: Atraumatic, PERRLA Neck: Supple, No JVD, No Thyromegaly Lungs: Clear to Auscultation, Normal Air Movement Heart: Regular Rate, Normal S1, Normal S2, Other (Systolic murmur) Abdomen: Normal Bowel Sounds, Soft, No Tenderness, No Hepatosplenomegaly, No Masses Extremities: No Clubbing, No Cyanosis, No Edema, Normal Pulses, No Tenderness/ Swelling Skin: No Rashes, No Breakdown, No Significant Lesion Neuro: Normal Tone, Sensation Intact Psych/Mental Status: Mood NL, Other (Confused) Results Lab Laboratory Tests 12/10/17 05:42 A/P-Cardiology Admission Diagnosis Change in mental status Recurrent UTI Coronary artery disease Malignant hypertension Assessment/Plan Change in mental status, lethargy, confusion, recurrent UTI, receiving antibiotic, managed by primary care team. Slowly improving. Continue to monitor Generalized weakness and loss of energy,slowly improving. Continue to monitor. Abnormal EKG, right bundle branch block, nonspecific T wave abnormality. Appeared to be chronic. Cardiac enzymes were negative, continue to monitor. Coronary artery disease, mild per cardiac catheterization done on July 17, 2016, continue to monitor at this time. Echocardiogram done in [facility] showing normal left ventricular size with left ventricular hypertrophy ejection fraction 60-65 percent, continue to monitor Malignant hypertension, resistant to multiple medication, her change in mental status could be due to episode of severe hypotension, blood pressure is better controlled at this time. I will continue monitoring Hyperlipidemia, monitor lipids. Generalized body ache, unable to tolerate statin. Dementia, progressive, change in mental status. Osteoarthritis, maintained on steroids. Clinical Quality Measures DVT/VTE Risk/Contraindication: Risk Factor Score Per Nursin RFS Level Per Nursing on Admit: 3=High BRENDEN CARTER MD Dec 10, 2017 08:42
--- NOTE | 2017-12-10 09:16 | Physical Therapy Progress Note ---
Therapy Progress Note Patient is unresponsive with PT attempt. No skilled PT indicated at this time. 1 visit JUMA MAX PT Dec 10, 2017 09:15
[2017-12-10] MEDS: PARoxetine 10 MG (PAXIL) TAB PO SCH (09:18)
[2017-12-10] MEDS: lisINopril 20 MG (PRINIVIL) TABLET PO SCH (09:18)
[2017-12-10] MEDS: SIMETHICONE 80 MG (MYLICON) CHEW PO SCH (09:18)
[2017-12-10] MEDS: MEMANTINE 10 MG (NAMENDA) TABLET PO SCH (09:18)
[2017-12-10] MEDS: DONEPEZIL 10 MG (ARICEPT) TAB PO SCH (09:18)
[2017-12-10] MEDS: risperiDONE 0.25 MG (RisperDAL) TAB PO SCH (09:19)
[2017-12-10] MEDS: VITAMIN D3 1,000 UNITS (CHOLECALCIFEROL) TABLET PO SCH (09:19)
[2017-12-10] MEDS: FLUCONAZOLE 100 MG/50 ML 50 ML IV SCH (09:19)
[2017-12-10] MEDS: FLUTICASONE NASAL SPRAY (FLONASE) 16 GM BTL NS SCH (09:19)
[2017-12-10] MEDS: MICONAZOLE 2% POWDER (DESENEX AF) 90 GM TOP SCH (09:20)
[2017-12-10] MEDS: NYSTATIN CREAM (MYCOSTATIN) 30 GM TUBE TP SCH ×2 (09:20→12:44)
[2017-12-10] MEDS: LACTULOSE SYRUP 10GM/15ML (ENULOSE) 30ML UDC PO SCH (09:37)
[2017-12-10] MEDS: POLYETHYLENE GLYCOL 17 GM (MIRALAX) PACK PO SCH (09:38)
--- NOTE | 2017-12-10 11:51 | Physical Therapy Evaluation ---
PT Evaluation-General Medical Diagnosis Admission Date Dec 06, 2017 at 13:30 Medical Diagnosis: Emelina, NSTEMI Onset Date: Dec 06, 2017 Therapy Diagnosis Therapy Diagnosis: debility/weakness Height/Weight Height (Feet): 5 Height (Inches): 4.00 Weight (Pounds): 191 Weight (Ounces): 6.0 Precautions Precautions/Isolations: Contact Isolation, Fall Prevention, Pressure Ulcer Weight Bear Status Right Lower Extremity: Right Full Weight Bearing Left Lower Extremity: Left Weight Bearing/Tolerated Referral Physician: Darshan Reason for Referral: Evaluation/Treatment Medical History Pertinent Medical History: Breast CA S/P Mastectomy, CAD, Dementia, HTN, OA Current History transfer from [facility] due to nonstemi Reviewed History: Yes Social History Home: [facility] Prior/[facility] Prior Level of Function Functional [place] Measure 0=Not Assessed/NA 4=Minimal Assistance 1=Total Assistance 5=Supervision or Setup 2=Maximal Assistance 6=Modified [place] 3=Moderate Assistance 7=Complete [place] Bed Mobility: 2 Transfers (B,C,W/C) (FIM): 2 per family in room PT Evaluation-Current Subjective Patient is very lethargic. Pain Numeric Pain Scale: 0-No Pain Location: No Pain Reported Objective Patient Orientation: Confused, Listless Problem Solving: Poor Attachments: Oxygen, Aguilar Catheter ROM/Strength ROM Lower Extremities bilateral LE WNL Strength Lower Extremities 3-/5 grossly bilateral LE (difficulty following simple direction) Integumentary/Posture Integumentary refer to nursing notes Bladder Incontinence: Aguilar Cath Posture severe cervical and thoracic flexion in sit Neuromuscular (Tone, Coordination, Reflexes) severely diminished coordination Sensory Vision: Wears Glasses Hearing: Impaired Sensation Right Lower Extremit: Impaired Sensation Left Lower Extremity: Impaired Transfers Functional [place] Measure 0=Not Assessed/NA 4=Minimal Assistance 1=Total Assistance 5=Supervision or Setup 2=Maximal Assistance 6=Modified [place] 3=Moderate Assistance 7=Complete [place] Transfers (B, C, W/C) (FIM): 1 Scootin Rollin Supine to/from Sit: 1 Sit to/from Stand: 1 Patient required dependent assist with all mobility. She was able to sit EOB briefly CGA. Balance Sitting Static: Fair Sitting Dynamic: Poor Standing Static: Poor Assessment/Needs 87 y.o. female, is currently at dependent LOF with all gross motor skills. She is very lethargic and has difficulty following simple direction. Patient would benefit from skilled PT to address functional strength and mobility. Rehab Potential: Guarded PT [facility] Goals Sole Painter Goals PT Sole Painter Goals Time Frame: Dec 19, 2017 Transfers (B,C,W/C) (FIM): 3 Gait (FIM): 1 Gait distance (FIM): 1=up to 49 ft Distance: 15' Gait Level of Assist: 2 Gait Assistive Device: FWW PT Plan Treatment/Plan Treatment Plan: Continue Plan of Care Treatment Plan: Bed Mobility, Education, Functional Activity Yumi, Functional Strength, Gait, Safety, Therapeutic Exercise, Transfers Treatment Duration: Dec 19, 2017 Frequency: 5 times per week Estimated Hrs Per Day: .25 hour per day Patient and/or Family Agrees t: Yes Time/GCodes Time In: 1120 Time Out: 1140 Total Billed Treatment Time: 20 Total Billed Treatment 1 visit EVHighC 20 min JUMA MAX PT Dec 10, 2017 11:51
--- NOTE | 2017-12-10 12:12 | Progress Note-Hospitalist ---
Standard Progress Note Progress Notes/Assess & Plan Date Seen 12/10/17 Time Seen by Provider: 12:09 Diagnosis Assessment: Altered mental status with syncopal episode with changes to EKG prompting transfer to higher level of care for presumed non-ST elevation [place] now disproved by Dr. Tejeda after no change noted on EKG compared to 2006 UTI likely ESBL or resistant organism Dementia with chronic debility resides in a usp with poor long-term prognosis DO NOT RESUSCITATE Hypertension Leukocytosis now resolved Assess & Plan/Chief Complaint The patient is alert but confused. She was sent here from the [facility] because of concern of myocardial disease. She has a urinary tract infection with enterococcus faecalis. This has been treated and she is more alert. It had been arranged previously to transfer that she would go to [facility] when dismissed. The bed is still available. She will be dismissed and transferred there today. Physical exam: She is alert and pleasant. Lungs are clear to auscultation. CV is regular. Ankles show 1+ edema. Impression: Mild to moderate dementia. 2.urinary tract infection with enterococcus faecalis. Plan: Transfer to [facility]. SEE discharge sequence for medications and activities Labs Laboratory Tests 12/09/17 04:41 12/10/17 05:42 FELIBERTO WALLIS MD Dec 10, 2017 12:12
[2017-12-10] MEDS ORDERED: NITR-68 PO (12:14)
--- NOTE | 2017-12-10 12:16 | Discharge Inst-Skilled Nursing ---
Discharge Inst-Skilled NF Chief Complaint CC: AMS w/syncope HPI: This is an 87-year-old white female DO NOT RESUSCITATE assisted patient of Dr. Wright's who was accepted in transfer from Dr. Tejeda due to syncopal episode with altered mental status and EKG changes consistent with acute ischemia and possible non-ST elevation [place]. Upon further assessment she was found to have recurrent UTI history of ESBL so she was placed on empiric antibiotics of vancomycin and meropenem broad-spectrum after urine culture obtained and Dr. Tejeda evaluated in EKG from 2005 and found no changes to those ST segments so she is currently stable but sleeping soundly and it does not appear she is very active and given the rest of her comorbidities her prognosis appears to be poor but will transfer back down to fourth floor maintain IV antibiotics until urine culture is completed and we have restarted most of her home medications. Patient Instructions Patient Problems: Mild to moderate dementia Recurrent UTIs Coronary artery disease Recurrent UTIs, Enterococcus faecalis Goal: Route jew of ambulatory skills. Consult/Follow Up/Orders Follow Up Appt.: Dr. Wright Skilled NF Admit to: [facility] Certification (SNF) I certify that SNF services are required to be given on an inpatient basis because of the above named patient's need for group home care on a continuing basis for the conditions(s) for which he/she was receiving inpatient hospital services prior to his/her transfer to the SNF. Y Longterm Facility Order: Electromatic Typist-Evaluate & Treat, Physical Therapy-Evaluate & Treat Discharge Diet: No Restrictions Daily Activity as Tolerated: Yes New & Resume Previous Orders Parveen Wallis Dec 10, 2017 12:14 PARVEEN WALLIS MD Dec 10, 2017 12:16
[2017-12-10] MEDS ORDERED: ALPR0.254 PO (12:43)
[2017-12-10] MEDS: CYANOCOBALAMIN 500 MCG TAB (VITAMIN B-12) PO SCH (12:44)
[2017-12-10] MEDS: ENOXAPARIN 40 MG/0.4 ML (LOVENOX) SYR SC SCH (12:44)
[2017-12-10] MEDS ORDERED: INFLUENZA TRIvalent 2017-2018 0.5 ML/45 MCG SYR IM ONE (15:02)
[2017-12-11] MEDS ORDERED: fluCOnazole (DIFLUCAN) 100 MG TAB PO SCH (09:00)
== END 2017-12-10 15:26 | DRG 690 ==
LOC: ICU 13:30 → 4TH 12-07 14:27
PROVIDERS: ADMIT Internal Medicine; ATTEND Internal Medicine
DX: N39.0 Urinary tract infection, site not specified (principal); B95.2 Enterococcus as the cause of diseases classified elsewhere; R94.31 Abnormal electrocardiogram [ECG] [EKG]; I45.10 Unspecified right bundle-branch block; I25.10 Atherosclerotic heart disease of native coronary artery without angina pectoris; B37.49 Other urogenital candidiasis; B37.2 Candidiasis of skin and nail; Z66 Do not resuscitate; Z23 Encounter for immunization; I10 Essential (primary) hypertension; F03.90 Unspecified dementia, unspecified severity, without behavioral disturbance, psychotic disturbance, mood disturbance, and anxiety; E03.9 Hypothyroidism, unspecified; E78.5 Hyperlipidemia, unspecified; F32.9 Major depressive disorder, single episode, unspecified; R53.1 Weakness; R53.81 Other malaise; M19.91 Primary osteoarthritis, unspecified site; M54.9 Dorsalgia, unspecified; E66.9 Obesity, unspecified; Z68.32 Body mass index [BMI] 32.0-32.9, adult; Z85.3 Personal history of malignant neoplasm of breast; Z90.11 Acquired absence of right breast and nipple; Z96.652 Presence of left artificial knee joint
CPT/HCPCS: 36415; 80048; 80053; 80061; 80202; 81000; 83605; 84484; 85007; 85025; 85027; 85610; 85730; 87040; 87077; 87081; 87088; 87186; 93005